=== PATIENT | male | born 1940 | race Caucasian/White ===

== ENCOUNTER 2019-05-20 13:48 | Inpatient (IN) | payer MEDICARE, BC ==
--- OUTSIDE RECORDS SUMMARY | 2019-05-20 14:02 | XMS REPORT | Summary of Care ---
:1940 Author Organization The Address [address] [place] [address] Care Team Providers Name Role Phone Solomon De La Cruz MD Primary Care Provider Jewel Wheeler MD Unavailable Reason for Referral MRI/CAT/PET Scan (Routine) Status Reason Specialty Diagnoses / Referred By Referred To Procedures Contact Contact Authorized Radiology Diagnoses Right flank pain Solomon De La Cruz MD [address] Procedures CT ABDOMEN PELVIS WITHOUT IV CONTRAST [address] [place] [address] Phone: Reason for Visit Reason Comments Follow Up pt presents for follow up from kidney infection [place] [facility] [place] Problem pt states having some right kidney pain, states going on for about 3/4 months. Seems to be when making any movements. Encounter Details Date Type Department Care Team Description 04/05/2019 Office Visit [facility] Solomon De La Cruz MD Right flank pain (Primary Dx); Practice [address] Stage 4 chronic kidney disease (HCC); [address] [place] [address] Prostate cancer; [place] [address] Anemia due to vitamin B12 deficiency, unspecified B12 deficiency type [phone] Allergies Active Allergy Reactions Severity Noted Date Comments Bactrim Ds Rash 02/26/2017 documented as of this encounter (statuses as of 04/05/2019) Medications Medication Sig Dispensed Refills Start Date End Date Status Cholecalciferol Take 1 Tab by 0 Active (VITAMIN D) 1000 UNITS mouth DAILY. Oral Tab docusate sodium (STOOL Take 100 mg by 0 Active SOFTENER) 100 MG Oral mouth TWICE DAILY. Cap Ascorbic Acid (VITAMIN Take 1 Cap by 0 Active C) 500 MG Oral Cap mouth DAILY. PROCEDURE (MEDICATION 1 Each by Apply 10 Each 0 01/16/2016 Active COMMUNICATION ORDER) externally route Continuous. leg bag to attach to a nephrostomy tube pravastatin take 1 tablet by 90 Tab 1 03/24/2017 Active (PRAVACHOL) 20 MG Oral mouth once daily Tab zolpidem (AMBIEN) 10 take 1 tablet by 30 Tab 1 01/02/2018 Active MG Oral Tab mouth at bedtime if needed for sleep amLodipine (NORVASC) 5 Take 1 Tab by 90 Tab 1 01/23/2018 Active MG Oral Tab mouth DAILY. bicalutamide (CASODEX) take 1 tablet by 90 Tab 0 01/07/2019 Active 50 MG Oral Tab mouth once daily clopidogrel (PLAVIX) take 1 tablet by 90 Tab 1 01/28/2019 Active 75 MG Oral Tab mouth once daily doxazosin (CARDURA) 1 Take 1 Tab by 90 Tab 1 03/12/2019 Active MG Oral Tab mouth EVERY BEDTIME. metoprolol (LOPRESSOR) Take 1 Tab by 180 Tab 1 03/12/2019 Active 50 MG Oral Tab mouth TWICE DAILY. documented as of this encounter (statuses as of 04/05/2019) Active Problems Problem Noted Date Anemia due to vitamin B12 deficiency 03/16/2019 Stage 4 chronic kidney disease 02/20/2018 Gout 04/07/2014 Overview: First-time presentation in May 2013 Prostate cancer 03/12/2010 Overview: 12/02/07 PSA 15, most recent treatment at [facility] in spring 2013 for cryotherapy Hyperlipidemia 03/12/2010 Overview: 10/12/09 Cholesterol 220, Triglycerides 99, HDL 62, LDL 138 Dr Hina Slaughter [phone] Erectile dysfunction 03/12/2010 Abdominal hernia 03/12/2010 Heart murmur 03/12/2010 CAD (coronary artery disease) 03/12/2010 Carotid bruit 03/12/2010 Overview: 10/21/2009 Dr Tj Knowles Radiologist, proximal internal carotid artories and carotid bulb regions were elevated showing a 26% stenosis on the left in the proximal internal carotid artery. Echocardiogram 10/21/09 EF 68% Osteopenia 03/12/2010 Essential hypertension, benign documented as of this encounter (statuses as of 04/05/2019) Resolved Problems Problem Noted Date Resolved Date Acute kidney failure, unspecified 03/29/2015 02/26/2017 NIMISHA (acute kidney injury) 03/28/2015 02/26/2017 documented as of this encounter (statuses as of 04/05/2019) Immunizations Name Administration Dates Next Due Influenza (IM) Preservative Free 05/23/2016, 05/08/2015, 05/18/2013, 05/06/2012, 05/23/2010 Influenza Vaccine High Dose 05/11/2018, 05/16/2017 Influenza Vaccine Whole 05/14/2011 PNEUMOCOCCAL POLYSACCHARIDE VACCINE 12/14/2014, 06/03/2005 Pneumococcal Conjugate(13 Valent) 06/03/2018 Vitamin B12 (1,000 mcg) 05/08/2015, 05/02/2015, 04/25/2015, 04/17/2015 ZOSTER (ZOSTAVAX) VACCINE 05/18/2013 documented as of this encounter Social History Tobacco Use Types Packs/Day Years Used Date Former Smoker Cigarettes 1 20 Quit: 08/18/2003 Smokeless Tobacco: Never Used Alcohol Use Drinks/Week oz/Week Comments No 0 Standard drinks or equivalent 0.0 Sex Assigned at Date Recorded Not on file Job Start Date Occupation Industry Not on file Not on file Not on file Travel History Travel Start Travel End No recent travel history available. documented as of this encounter Last Filed Vital Signs Vital Sign Reading Time Taken Comments Blood Pressure 132/66 04/05/2019 2:45 PM EDT Pulse 67 04/05/2019 2:45 PM EDT Temperature - - Respiratory Rate - - Oxygen Saturation 99% 04/05/2019 2:45 PM EDT Inhaled Oxygen Concentration - - Weight 81.2 kg (179 lb) 04/05/2019 2:45 PM EDT Height 172.7 cm (5' 8") 04/05/2019 2:45 PM EDT Body Mass Index 27.22 04/05/2019 2:45 PM EDT documented in this encounter Progress Notes Solomon De La Cruz MD - 04/05/2019 2:40 PM EDT PATIENT: Jenelle Thorne : 1940 DATE OF SERVICE: 04/05/2019 CHIEF COMPLAINT: Chief Complaint Patient presents with Follow Up pt presents for follow up from kidney infection from [facility] [place] Kidney Problem pt states having some right kidney pain, states going on for about 3/4 months. Seems to be when making any movements. Subjective HISTORY OF PRESENT ILLNESS: Jenelle Thorne is a 78-y.o. male. He still has back pain on the right side. 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 . More when he moves . Sitting ingood chair no problem. No radiation. Not pleuritic . Stent was changed and told right side loose but also lot of calcifications so was a difficult exchange that led to a uti. He was feverish Put on antibiotics and is better now. His hematuria is better Cr up to 2.5 rest of lytes stable Wbc 11 Hct stable at 35 Past Medical History: Diagnosis Date Actinic keratoses Dr. Nick Carotid stenosis CKD (chronic kidney disease) High cholesterol Hypertension MGUS (monoclonal gammopathy of unknown significance) Peripheral neuropathy Prostate cancer (HCC) bladder had to be removed. nephrostomy tubes out. No family history on file. Current Outpatient Medications Medication Sig amLodipine (NORVASC) 5 MG Oral Tab Take 1 Tab by mouth DAILY. Ascorbic Acid (VITAMIN C) 500 MG Oral Cap Take 1 Cap by mouth DAILY. bicalutamide (CASODEX) 50 MG Oral Tab take 1 tablet by mouth once daily Cholecalciferol (VITAMIN D) 1000 UNITS Oral Tab Take 1 Tab by mouth DAILY. clopidogrel (PLAVIX) 75 MG Oral Tab take 1 tablet by mouth once daily docusate sodium (STOOL SOFTENER) 100 MG Oral Cap Take 100 mg by mouth TWICE DAILY. doxazosin (CARDURA) 1 MG Oral Tab Take 1 Tab by mouth EVERY BEDTIME. metoprolol (LOPRESSOR) 50 MG Oral Tab Take 1 Tab by mouth TWICE DAILY. pravastatin (PRAVACHOL) 20 MG Oral Tab take 1 tablet by mouth once daily PROCEDURE (MEDICATION COMMUNICATION ORDER) 1 Each by Apply externally route Continuous. legbag to attach to a nephrostomy tube zolpidem (AMBIEN) 10 MG Oral Tab take 1 tablet by mouth at bedtime if needed for sleep No current facility-administered medications for this visit. Allergies Allergen Reactions Bactrim Ds Rash Social History Socioeconomic History Marital status: Spouse name: Not on file Number of children: Not on file Years of education: Not on file Highest education level: Not on file Occupational History Not on file Social Needs Financial resource strain: Not on file Food insecurity: Worry: Not on file Inability: Not on file Transportation needs: Medical: Not on file Non-medical: Not on file Tobacco Use Smoking status: Former Smoker Packs/day: 1.00 Years: 20.00 Pack years: 20.00 Types: Cigarettes Last attempt to quit: 08/18/2003 Years since quittin.6 Smokeless tobacco: Never Used Substance and Sexual Activity Alcohol use: No Alcohol/week: 0.0 standard drinks Drug use: No Sexual activity: Yes Lifestyle Physical activity: Days per week: Not on file Minutes per session: Not on file Stress: Not on file Relationships Social connections: Talks on phone: Not on file Gets together: Not on file Attends latter day service: Not on file Active member of club or organization: Not on file Attends meetings of clubs or organizations: Not on file Relationship status: Not on file Intimate partner violence: Fear of current or ex partner: Not on file Emotionally abused: Not on file Physically abused: Not on file Forced sexual activity: Not on file Other Topics Concern Back Care Not Asked Bike Helmet Not Asked Blood Transfusions Not Asked Caffeine Concern Not Asked Exercise Not Asked Hobby Hazards Not Asked International Travel Not Asked Service Not Asked Occupational Exposure Not Asked Seat Belt Not Asked Self-Exams Not Asked Sleep Concern Not Asked Special Diet Not Asked Stress Concern Not Asked Weight Concern Not Asked Social History Narrative Lives in [place], [place]. 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 Has female partner. REVIEW OF SYSTEMS: ROS Objective PHYSICAL EXAM: VITALS: BP 132/66 (BP Location: Right arm, Patient Position: Sitting) | Pulse 67 | Ht 5' 8" (1.727 m) | Wt 179 lb (81.2 kg) | SpO2 99% | BMI 27.22 kg/m Body mass index is 27.22 kg/m. Physical Exam Constitutional: No distress. Cardiovascular: Normal rate and regular rhythm. Pulmonary/Chest: Effort normal and breath sounds normal. No respiratory distress. Musculoskeletal: He exhibits no tenderness (not to palpate but at the CVA region ). Skin: No rash noted. Vitals reviewed. ASSESSMENT / IMPRESSION: ICD-9-CM ICD-10-CM 1. Right flank pain in a patient with prostate cancer and nephrostomy tubes . Could be musculoskeletal or could be due to the tubes . All I can offer him is a CT to make sure nothing else going on. ultrasound already been done . Labs reassuring no increase to alk phos or LFT 789.[address] ABDOMENPELVIS WITHOUT IV CONTRAST 2. Stage 4 chronic kidney disease (HCC) 585.4 N18.4 3. Prostate cancer 185 C61 4. Anemia due to vitamin B12 deficiency, unspecified B12 deficiency type He is getting B12 as ordered by his doctors in [place] 281.1 D51.9 I Plan His significant other is in Hospice Author: Solomon De La Cruz MD 04/05/2019 15:09 documented in this encounter Plan of Treatment Date Type Specialty Care Team Description 04/20/2019 Nurse/Clinical Support Internal Medicine Name Type Priority Associated Diagnoses Order Schedule CT ABDOMEN PELVIS Imaging Routine Right flank pain Expected: 04/05/2019, WITHOUT IV CONTRAST Expires: 04/04/2020 Health Maintenance Due Date Last Done Comments HIV SCREENING 1955 ZOSTER IMMUNIZATION SERIES 07/13/2013 05/18/2013 (2 of 3) COLONOSCOPY SCREENING 03/28/2017 03/28/2014, 05/07/2010, 05/07/2010, Additional history exists MEDICARE ANNUAL WELLNESS 02/26/2018 02/26/2017 VISIT INFLUENZA VACCINE (#1) 2019 05/11/2018, 05/16/2017, 05/23/2016, Additional history exists DEPRESSION SCREENING 02/02/2020 02/01/2019 FALL RISK ASSESSMENT 02/02/2020 02/01/2019, 02/01/2019 PNEUMOCOCCAL 65+YRS Completed 06/03/2018, 12/14/2014, 06/03/2005 HPV IMMUNIZATION SERIES Aged Out No longer eligible based on patient's age to complete this topic MENINGOCOCCAL VACCINE IMM Aged Out No longer eligible based on patient's age to complete this topic documented as of this encounter Goals Goal Patient Goal Associated Recent Patient-Stated? Author Type Problems Progress Blood Pressure Blood Pressure Essential 132/66 No Jono, < 140/90 hypertension, (04/05/2019 MD Solomon benign 2:45 PM EDT) Note: Hypertension Care Plan Based on the patient's clinical history and according to JNC 8 guidelines target blood pressure goal is less than 150/90. Based on the patient's last blood pressure of BP: 144/50 mmHg the patient is at at goal. As your provider, it is important that I advise you regarding: your current medications and help you with any challenges you may face taking your medications as directed (ex. instructions, cost, side effects, and interactions). Important lifestyle changes: exercise your clinical goals and how you can achieve success: exercise plan medication management: adjusted medications as appropriate patient education/self-management tools provided: Current self-management tools adequate To successfully manage my Hypertension I will: monitor my blood pressure daily, understanding that my goal is less than 150/ 90 per my healthcare provider's recommendation. I will schedule an appointment with my provider if consistent abnormal readings greater than 160/100. take medications every day as prescribed by my healthcare provider and if unable to take them I will discuss with my provider. monitor for symptoms of chest pain, chest tightness/pressure, irregular heartbeat, persistent dizziness, radiating arm pain, and neck or jaw pain. If any of these symptoms are noticed I will seek medical attention immediately by calling 911 exercise/walk 15 minutes 7 day(s) per week. If I experience chest pain, chest tightness, or shortness of breath, I will seek medical attention immediately. follow a diet rich in fruits, vegetables, and low-fat dairy products with reduced content of saturated & total fat. I will reduce my sodium intake daily. An example is the DASH diet. To obtain more information please refer to the DASH Eating Plan listed in Educational Resources. record my blood pressure results. Hong is safe and secure way for you to do this in your medical record online. try to obtain an ideal body weight. My recent weight was Weight: 144 lb ( 65.318 kg). My weight loss goal for my next office visit is 0. limit alcohol consumption. For men two drinks per day and women one drink per day. if currently smoking, will discuss how to quit smoking with my healthcare provider and work towards quitting. Educational Resources: National Heart, Lung, & Blood [place] http://nhlbi.nih.gov/hbp/index.html The DASH Diet Eating Plan http://www.nhlbi.nih.gov/health/health-topics/ topics/dash/ Academy of Nutrition & DIetetics http://eatright.org National Smoking Cessation Site http://smokefree.gov Blood Pressure < 140/90 Blood Pressure 132/66 (04/05/2019 2:45 No Solomon De La Cruz MD PM EDT) Note: This is an individualized treatment (blood pressure) goal for Jenelle Thorne: Displayed above (on the left) is your goal for blood pressure control. Your most recent blood pressure is also shown above, on the right. You should try to achieve blood pressures that are lower than your goal listed above (on the left). Take all prescribed medications as directed Self-management No Solomon De La Cruz MD Note: This is an individualized self-management goal for Jenelle Thorne: Please take all prescribed medications as directed. 1. Do not skip doses. If you cannot afford your medications, talk with your doctor. 2. Use a pill reminder system such as a pill box if needed. Your pharmacist can help you with this. 3. Contact your Pharmacy 5 days before your medication runs out. If you cannot take your medications for any reasons, talk with your doctor. 4. Please bring all of your medication bottles and inhalers (or a list of all your medications/inhalers) with you to every visit. Potential barriers to meeting all of your care plan goals will continue to be addressed on an ongoing basis. documented as of this encounter Results Not on filedocumented in this encounter Visit Diagnoses Diagnosis Right flank pain - Primary Abdominal pain, unspecified site Stage 4 chronic kidney disease (HCC) Prostate cancer Malignant neoplasm of prostate Anemia due to vitamin B12 deficiency, unspecified B12 deficiency type documented in this encounter Insurance Payer Benefit Plan / Subscriber ID Effective Dates Phone Address Type Group MEDICARE MEDICARE PART A & B xxxxxxxxxx 2005-Present Medicare [facility] xxxxxxxxx 2016-Present [place] (Work) documented as of this encounter
[2019-05-20] MEDS ORDERED: NS 0.9% 1000 ML** 1,000 ML IV.FLUID IV ONE (14:21)
[2019-05-20] MEDS ORDERED: Piperacillin/Tazobac ADVAN(*) 3.375 GM in NS 0.9% 100 ML* 100 ML IVPB ONE (14:21)
--- NOTE | 2019-05-20 14:41 | ED ---
Complex/Multi-Sys Presentation - HPI Summary HPI Summary: 78 year old M presenting to [facility] from radiology accompanied by son-in-law complains of chills and shakes, nausea/vomiting since 13:30 today while he was getting ready to go home after having his bilateral urostomy tubes changed. Patient denies cough, chest pain, shortness of breath, headache, dizziness, fever. The patient rates the pain 0/10 in severity per triage note. Symptoms aggravated by nothing. Symptoms alleviated by nothing. Patient has hx sepsis with which he usually has chills and shakes. Per nurse, patient has hx septic shock 3 years ago. Vital signs while in room: HR 88 bpm, BP 174/78, O2 sat 95% Home Medications Medication Instructions Recorded Confirmed Type Clopidogrel TAB* [Plavix TAB*] 75 mg PO QPM 03/11/16 05/20/19 History Doxazosin TAB* [Cardura TAB*] 1 mg PO BEDTIME 03/11/16 05/20/19 History Metoprolol Tartrate TAB* 50 mg PO BID 03/11/16 05/20/19 History [Lopressor TAB*] amLODIPine TAB* [Norvasc TAB*] 5 mg PO QAM 03/11/16 05/20/19 History Ascorbic Acid TAB* [Vitamin C 500 mg PO DAILY 02/20/17 05/20/19 History TAB*] Bicalutamide [Casodex] 50 mg PO QPM 02/20/17 05/20/19 History Cholecalciferol (Vitamin D3) 1,000 unit PO DAILY 02/20/18 05/20/19 History [Vitamin D3] Pravastatin Sodium 20 mg PO QPM 02/20/18 05/20/19 History Cyanocobalamin INJ * [Vitamin B12 1 ml IM .EVERY 28 DAYS 05/20/19 05/20/19 History INJ *] Docusate CAP* [Colace Cap*] 100 mg PO BID 05/20/19 05/20/19 History Zolpidem TAB* [Ambien TAB*] 10 mg PO BEDTIME PRN 05/20/19 05/20/19 History - History Of Current Complaint Chief Complaint: EDGeneral Time Seen by Provider: 05/20/19 14:18 Hx Obtained From: Patient, Other: - radiology nurse Onset/Duration: Sudden Onset, Lasting Hours, Still Present Timing: Constant Severity Currently: Moderate - no pain, +chills and vomiting Severity Initially: Moderate Location: Negative Aggravating Factor(s): Nothing Alleviating Factor(s): Nothing Associated Signs And Symptoms: Positive: Vomiting, Other - POS: chills NEG: cough, chest pain, shortness of breath, headache, dizziness, fever Related History: Similar Episode/Diagnosed As: - sepsis due to urinary tract infection - Allergies/Home Medications Allergies/Adverse Reactions: Allergies Allergy/AdvReac Type Severity Reaction Status Date / Time sulfamethoxazole Allergy Rash And Verified 05/20/19 07:31 [From Bactrim] Itching trimethoprim [From Bactrim] Allergy Rash And Verified 05/20/19 07:32 Itching Home Medications: Home Medications Cyanocobalamin INJ * [Vitamin B12 INJ *] 1 ml IM .EVERY 28 DAYS 05/20/19 [ History Confirmed 05/20/19] Docusate CAP* [Colace Cap*] 100 mg PO BID 05/20/19 [History Confirmed 05/20/19] Zolpidem TAB* [Ambien*] 10 mg PO BEDTIME PRN 05/20/19 [History Confirmed ] PMH/Surg Hx/FS Hx/Imm Hx Previously Healthy: No Endocrine/Hematology History: Reports: Hx Anemia - B12 deficiency Cardiovascular History: Reports: Hx Coronary Artery Disease, Hx Hypercholesterolemia, Hx Hypertension History: Reports: Hx Renal Disease - BILATERAL UROSTOMY CATHETERS Musculoskeletal History: Reports: Hx Gout Neurological History: Reports: Hx Peripheral Neuropathy - Cancer History Cancer Type, Location and Year: PROSTATE - Surgical History Surgery Procedure, Year, and Place: PROSTATE AND BLADDER REMOVED Infectious Disease History: No Infectious Disease History: Denies: Traveled Outside the [place] in Last 30 Days - Family History Known Family History: Positive: Other - prostate CA - Social History Alcohol Use: None Substance Use Type: Reports: None Hx Tobacco Use: Yes Smoking Status (MU): Former Smoker Review of Systems Positive: Chills, Other - shakes. Negative: Fever Negative: Chest Pain Negative: Shortness Of Breath, Cough Positive: Vomiting, Nausea Positive: other - bilateral urostomy tubes changed just prior to ED presentation Positive: Myalgia Neurological: Negative - dizziness Negative: Headache Psychological: Normal All Other Systems Reviewed And Are Negative: Yes Physical Exam - Summary Physical Exam Summary: Appearance: Ill-appearing, no acute pain distress, well-nourished, rigors, dry heaving Skin: Warm, color reflects adequate perfusion, dry Head: Normal Head/Face inspection, atraumatic Eyes: Conjunctiva clear ENT: Normal inspection Neck: Supple, no nodes, no JVD Respiratory: Lungs clear, normal breath sounds, no respiratory distress Cardio: RRR, No murmur, pulses normal, brisk capillary refill Abdomen: Soft, nontender, nondistended, no ecchymosis Bowel sounds: Present : cystostomy bag with clear urine Musculoskeletal: Strength Intact/ROM intact, no calf tenderness, no edema. Psychological: Normal Neuro: Alert, muscle tone normal, no focal deficit Triage Information Reviewed: Yes Vital Signs On Initial Exam: Initial Vitals Temp Pulse Resp BP Pulse Ox 98 F 93 20 170/70 99 05/20/19 13:53 05/20/19 13:53 05/20/19 13:53 05/20/19 13:53 05/20/19 13:53 Vital Signs Reviewed: Yes Procedures - Sedation Patient Received Moderate/Deep Sedation with Procedure: No Diagnostics - Vital Signs Vital Signs Temp Pulse Resp BP Pulse Ox 05/20/19 14:33 97 05/20/19 13:53 98 F 93 20 170/70 99 - Laboratory Result Diagrams: 05/23/19 05:52 05/23/19 05:52 Lab Statement: Any lab studies that have been ordered have been reviewed, and results considered in the medical decision making process. - Radiology CXR Radiology Interpretation Completed By: Radiologist Summary of Radiographic Findings: No evidence for pneumonia or other acute cardiopulmonary process. ED physician has reviewed this report. - EKG 1459 Cardiac Rate: NL - 90 BPM EKG Rhythm: Sinus Rhythm ST Segment: Non-Specific Ectopy: None EKG Comparison: Other - No prior to compare Summary of EKG Findings: An EKG at 14:59 reveals sinus rhythm, nml AV/IV CT, nml QTc, and nml axis. Minimal ST depressions diffusely. No acute changes. No prior EKG to compare. ED MD has reviewed and interpreted this EKG. Re-Evaluation - Re-Evaluation First Eval Re-Evaluation Time: 15:35 Change: Improved Comment: patient is more comfortable. still complains of being cold. no rigors , no dry heaving Second Eval Re-Evaluation Time: 22:00 Change: Worse Comment: RN reports temp 100.7. Pt without rigors or vomiting or abdominal pain. Hospitalist advised. Complex Multi-Symp Course/Dx Course Of Treatment: 78 year old Male presenting to [facility] from radiology complains of chills and shakes, nausea/vomiting since 13:30 today while he was getting ready to go home after having his bilateral urostomy tubes changed in the radiology department. Upon exam, the patient has rigors and is dry heaving. Patient has a cystostomy bag with clear urine. His abdomen is soft, nontender, without ecchymoses. Patient medications reviewed this visit. Nurses notes reviewed. Allergies noted. High blood pressure noted. In the ED course , the patient was given Zofran 8 mg IV, Zosyn 3.375gm IV x1, and normal saline fluids 30cc/kg per sepsis protocol. Pt is difficult venous access and pt's IV placed in radiology suite was via ultrasound. Patient's clinical condition and hx sepsis due to urinary infection, warrants IV antibiotics prior to all blood cultures. It would endanger patient's outcome if antibiotics were not given emergently in his clinical course. An EKG at 14:59 reveals sinus rhythm, nml AV /IV CT, nml QTc, and nml axis. Minimal ST depressions diffusely. No acute changes. No prior EKG to compare. CXR shows, per radiologist: No evidence for pneumonia or other acute cardiopulmonary process. Urinalysis results with no significant abnormalities except for specific gravity 1.009, protein 2+, blood 3 +, leukocyte esterase 3+, WBC 3+, RBC 3+, present squamous epithelial cells, and bacteria 1+. At 15:09, we are awaiting the US team to place patient's venous access. Patient's previous venous access with which patient arrived was placed by US team. Bloodwork results with no significant abnormalities except for WBC 12.5, RBC 2.96, Hgb 9.6, Hct 29, MCV 97, MCH 32, absolute neuts 12.2, absolute lymphs 0.1, INR 1.18, APTT 25.7, INR 1.18, APTT 25.7, carbon dioxide 21 , BUN 29, creatinine 1.00, calcium 7.5, CRP 9.80, BNP 121, total protein 5.6. Spoke with Dr. Richter, hospitalist, who is aware of patient at 15:38. The patient will be admitted to the hospitalist. With tachycardia, fever, elevated wbc count and suspected source urine, pt meets sepsis criteria. - Diagnoses Differential Diagnoses/HQI/PQRI: Metabolic Abnormality, Sepsis, Urinary Tract Infection Provider Diagnoses: Rigors, Hypoxia, Anemia, Sepsis, CKD (chronic kidney disease) stage 3, GFR 30- 59 ml/min, Hypocalcemia, Complication of urostomy - Physician Notifications Discussed Care Of Patient With: Emma Richter Time Discussed With Above Provider: 15:38 Instructed by Provider To: Admit As Inpatient - Dr. Richter, hospitalist, is aware of patient - Critical Care Time Critical Care Time: 30-74 min - 30 mins Discharge ED - Sign-Out/Discharge Documenting (check all that apply): Patient Departure - Admit - Discharge Plan Condition: Stable Disposition: ADMITTED TO [facility] - Billing Disposition and Condition Condition: STABLE Disposition: Admitted to [facility] - Attestation Statements Document Initiated by Irvinge: Yes Documenting Scribe: Shari Espino Provider For Whom Jad is Documenting (Include Credential): Kassandra Michaud MD Scribe Attestation: Shair Carr, scribed for Kassandra Michaud MD on 06/13/19 at 2222. Scribe Documentation Reviewed: Yes Provider Attestation: The documentation as recorded by the [email or web address] rebolledo accurately reflects the service I personally performed and the decisions made by me, Kassandra Michaud MD Status of Scribe Document: Viewed
[2019-05-20] MEDS ORDERED: Ondansetron INJ* 2 MG/ML VIAL IV ONE (15:05)
[2019-05-20 15:36] LABS: Urine Appearance Cloudy; Urine Bacteria 1+ (Absent); Urine Bilirubin Negative (Negative); Urine Blood 3+ (Negative); Urine Color Yellow; Urine Glucose Negative (Negative); Urine Ketones Negative (Negative); Urine Nitrite Negative (Negative); Urine Protein 2+(100 mg/dL) (Negative); Urine Red Blood Cell 3+(>10/hpf) (Absent); Urine Specific Gravity 1.009 (1.010-1.030); Urine Squamous Epithelial Cell Present (Absent); Urine Urobilinogen Negative (Negative); Urine White Blood Cell 3+(>20/hpf) (Absent)
[2019-05-20 16:36] LABS: ABS Basophils 0.1 10^3/ul (0-0.2); ABS Lymphocytes 0.1 10^3/ul (1.0-4.8); ABS Monocytes 0.1 10^3/ul (0-0.8); ABS Neutrophils 12.2 10^3/ul (1.5-7.7); Eosinophil % 0.1 %; Hematocrit 29 % (42-52); Hemoglobin 9.6 g/dL (14.0-18.0); Lymphocyte % 0.7 %; Mean Corpuscular HGB Conc 34 g/dL (31-36); Mean Corpuscular Hemoglobin 32 pg (27-31); Mean Corpuscular Volume 97 fL (80-94); Mean Platelet Volume 8.8 fL (7.4-10.4); Platelet Count 168 10^3/uL (150-450); Red Blood Count 2.96 10^6 /uL (4.18-5.48); Red Cell Distribution Width 13 % (10-15); White Blood Count 12.5 10^3/uL (3.5-10.8)
[2019-05-20 16:40] LABS: Troponin I 0.03 ng/mL (<0.04)
[2019-05-20 16:41] LABS: Activated Partial Thrombo Time 25.7 seconds (26.0-38.0); INR 1.18 (0.82-1.09)
[2019-05-20 16:50] LABS: Albumin 3.4 g/dL (3.2-5.2); Albumin/Globulin Ratio 1.5 (1-3); BUN/Creatinine Ratio 14.6 (8-20); C Reactive Protein 9.8 mg/L (<8.01); Calcium 7.5 mg/dL (8.6-10.3); EGFR African American 39.5 (>60); EGFR Non-African American 32.7 (>60); Globulin 2.2 g/dL (2-4); Total Bilirubin 0.6 mg/dL (0.2-1.0); Total Protein 5.6 g/dL (6.4-8.9)
[2019-05-20 17:01] LABS: Potassium 4.4 mmol/L (3.5-5.0)
[2019-05-20 18:27] LABS: Erythrocyte Sed Rate 33 mm/Hr (0-19)
[2019-05-20 19:39] LABS: Influenza A Molecular NEGATIVE (Negative); Influenza B Molecular NEGATIVE (Negative)
[2019-05-21] MEDS ORDERED: Ondansetron INJ* 2 MG/ML VIAL IV PRN (01:44)
[2019-05-21] MEDS ORDERED: NS 0.9% 1000 ML** 1,000 ML IV SCH (01:45)
[2019-05-21] MEDS ORDERED: Vancomycin(*) 1,000 MG in NS 0.9% 250 ML* 250 ML IVPB ONE (01:49)
[2019-05-21] MEDS ORDERED: Zolpidem TAB* 10 MG PO PRN (01:50)
[2019-05-21] MEDS ORDERED: Zosyn per Pharmacy* NOTE FOLLOW UP SCH (02:00)
[2019-05-21] MEDS ORDERED: Vancomycin per Pharmacy* NOTE FOLLOW UP SCH (02:00)
[2019-05-21] MEDS ORDERED: Vancomycin(*) 1,250 MG IV x ONCE IVPB ONE ×2 (02:30)
[2019-05-21] MEDS ORDERED: ZOSYN 3.375 GM x ONE DOSE over 30 miuntes IVPB ×2 (02:30)
--- NOTE | 2019-05-21 05:41 | HP ---
CC: Dr. Solomon De La Cruz; Dr. Jewel Wheeler * ADMISSION HISTORY AND PHYSICAL: DATE OF ADMISSION: 05/21/19 PRIMARY CARE PHYSICIAN: Dr. Solomon De La Cruz. UROLOGIST: Dr. Jewel Wheeler. CHIEF COMPLAINT: Chills. 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 He has had percutaneous nephrostomy tubes in the past and later started having bilateral stents, which were periodically changed. His most recent stent change was on 05/20/19 in the morning. Postprocedure that morning, the patient started feeling chills and shakes and was getting dressed to leave, he noticed some blood in the urine, but which was noted to be normal for this kind of procedure, but he later started developing vomiting, which was clear. After observing him for a few hours, he was sent to the ER for further evaluation. The patient otherwise offers no other complaints at this point and no pain. No burning sensation with urination or change in urinary color, other than the minimal amount of blood he initially noted postprocedure. His cystostomy bag was filled up with clear yellow urine, but he did develop fever upon arrival to the ER and he was noted to have elevated white count suggestive of sepsis, likely secondary to UTI. He is being admitted for treatment of the sepsis. PAST MEDICAL HISTORY: He has a history of chronic kidney disease stage 3; anemia; recurrent UTIs; hypertension; hyperlipidemia; gout; peripheral neuropathy; vitamin B12 deficiency; as mentioned prostate cancer, status post proton beam radiation therapy, followed by cryotherapy failure, later requiring cystoprostatectomy with ileal conduit for urinary diversion, which later required him to have bilateral ureteral stent placement and percutaneous nephrostomy tubes placement. The nephrostomy tubes were later removed in 2017 once the ureteral stents were functioning normally, now requiring ureteral stent change. He also has a history of coronary artery disease, stated that he had a cardiac cath done, which showed some partial stenosis roughly up to 65% but did not require any stents and is only started on Plavix. PAST SURGICAL HISTORY: As mentioned, he has had multiple bladder and prostate surgeries and cystoscopies and stent placements and nephrostomy. He has also had an arthroscopy of the right knee and cardiac catheterization as mentioned. HOME MEDICATIONS: The patient is currently on: 1. Ambien p.r.n. for insomnia. 2. Cyanocobalamin every 28 days IM. 3. Pravastatin 20 mg every evening. 4. Metoprolol 15 mg p.o. b.i.d. 5. Doxazosin 1 mg p.o. at bedtime. 6. Colace 100 mg p.o. b.i.d. 7. Clopidogrel 75 mg every evening. 8. Vitamin D3 1000 units oral daily. 9. Casodex 50 mg every evening. 10. Amlodipine 5 mg every morning. 11. Vitamin C 500 mg oral daily. ALLERGIES: As documented, the patient is allergic to BACTRIM. FAMILY HISTORY: Noncontributory. SOCIAL HISTORY: The patient had a history a [id number] history of smoking, quit over 20 years ago. Denies any alcohol use or any other drug use. Currently, he is living alone in [place] but does have a partner who is sick in [place]. He is full code and stated that he had a healthcare proxy before which he states that is his partner in [place], Lilyimani Jefferson, would be the primary healthcare proxy and Allyson Brannon, his daughter to be the secondary. However, for this admission given that the primary healthcare proxy is sick, he wants all calls to be diverted to Allyson Brannon. REVIEW OF SYSTEMS: A 14-point review of systems did not reveal any information other than the ones stated in the HPI. PHYSICAL EXAMINATION GENERAL: The patient is awake, alert, oriented x3, did not appear to be in any acute respiratory distress. VITAL SIGNS: In ER, BP was noted to be 129/47, heart rate 74, respiration rate 27, saturating 97% on room air, T-max in the ER was documented at 100.7. HEAD AND NECK: Atraumatic, normocephalic. Bilateral pupils were reactive. Oral mucosa was dry. Neck supple. No jugular venous distention. LUNGS: Clear to auscultation bilaterally. No wheezing, rhonchi, or rales. HEART: S1, S2. Regular rate and rhythm. ABDOMEN: Soft, nontender, nondistended. There was a cystostomy in place with clear yellow urine and no abdominal wall tenderness. EXTREMITIES: No cyanosis, clubbing, or edema. DIAGNOSTIC STUDIES/LAB DATA: CBC shows minimally elevated white count of 12.5 , mild anemia with hemoglobin of 9.6, hematocrit of 28, platelet count was normal at 168. INR was noted to be minimally elevated at 1.18, APTT was noted to be 25.7. Comprehensive metabolic panel shows creatinine stable at baseline at 1.99. Lactic acid normal. Brain natriuretic peptide was 121. LFTs were within normal limits. Urinalysis with 3+ leuk esterase positive and 3+ blood positive and a few bacteria. Influenza A and B were both noted to be negative. Portable chest x-ray was read as no evidence of pneumonia or other acute cardiopulmonary disease. EKG showed sinus rhythm at 90 beats per minute without any ST elevation. Previous cultures show growth of Klebsiella oxytoca, group B strep, Providencia rettgeri, and Proteus vulgaris. Reviewing the sensitivities of these organisms suggest all 4 species were sensitive to piperacillin and tazobactam. IMPRESSION: This is a 78-year-old male with unfortunate history of prostate cancer, which was complicated requiring cystostomy and serial bilateral ureteral stent change, comes in with ureteral stent change yesterday and developed fever and sepsis secondary to the procedure and likely urinary tract infection. ASSESSMENT: 1. Sepsis secondary to urinary tract infection, related to the stent change. For now, we will start the patient on broad-spectrum antibiotics with Zosyn, which covers the previously growing bacteria from February of 2019. We will also add vancomycin to cover for any methicillin-resistant Staphylococcus aureus that he may have acquired through instrumentalization. We will follow up cultures and titrate antibiotics accordingly. 2. History of prostate cancer. Restart his home dose of Casodex. 3. History of coronary artery disease, but no stents. Here, we will continue his Plavix. 4. History of hypertension. Restart home medications with BP parameters. 5. History of dyslipidemia. Restart home medications. 6. DVT prophylaxis with subcutaneous heparin. 7. Code status. Full code with the daughter Allyson being currently the primary healthcare proxy for this admission as mentioned. [id number]/[facility] #: [id number] [facility]
[2019-05-21 05:44] LABS: Hematocrit 29 % (42-52); Hemoglobin 9.6 g/dL (14.0-18.0); Mean Corpuscular HGB Conc 33 g/dL (31-36); Mean Corpuscular Hemoglobin 32 pg (27-31); Mean Corpuscular Volume 97 fL (80-94); Mean Platelet Volume 9.3 fL (7.4-10.4); Platelet Count 154 10^3/uL (150-450); Red Blood Count 2.99 10^6 /uL (4.18-5.48); Red Cell Distribution Width 14 % (10-15); White Blood Count 23.3 10^3/uL (3.5-10.8)
[2019-05-21 05:47] LABS: ABS Basophils 0.1 10^3/ul (0-0.2); ABS Lymphocytes 0.2 10^3/ul (1.0-4.8); ABS Monocytes 0.7 10^3/ul (0-0.8); ABS Neutrophils 22.4 10^3/ul (1.5-7.7); Lymphocyte % 0.9 %
[2019-05-21 05:58] LABS: BUN/Creatinine Ratio 11.9 (8-20); Calcium 8.1 mg/dL (8.6-10.3); EGFR African American 31.4 (>60); EGFR Non-African American 25.9 (>60); Potassium 4.3 mmol/L (3.5-5.0)
[2019-05-21] MEDS: Heparin VIAL(*) 5000 UNITS/ML VIAL (FIVE THOUSAND) SUBCUT SCH ×3 (05:59→22:15)
[2019-05-21] MEDS ORDERED: ZOSYN 3.375 GM Q8H per EXTENDED INFUSION IVPB SCH ×2 (06:30)
[2019-05-21] MEDS: Cholecalciferol TAB* 1000 UNITS PO SCH (08:04)
[2019-05-21] MEDS: Metoprolol Tartrate TAB* 50 mg PO SCH ×2 (08:04→20:34)
[2019-05-21] MEDS: Ascorbic Acid TAB* 500 MG PO SCH (08:05)
[2019-05-21] MEDS: amLODIPine TAB* 5 MG PO SCH (08:05)
[2019-05-21] MEDS: Docusate CAP* 100 MG PO SCH ×2 (08:13→20:32)
[2019-05-21] MEDS ORDERED: Influenza VAC *QUAD* 2019-20* 0.5 ML SYRINGE IM ONE (09:00)
[2019-05-21] MEDS: cefTRIAXone(*) 1 GM in NS 0.9% 50 ML* 50 ML IVPB SCH (10:20)
[2019-05-21] MEDS: Vancomycin(*) 500 MG in NS 0.9% 250 ML* 250 ML IVPB SCH (15:26)
--- NOTE | 2019-05-21 15:32 | PN ---
Subjective Date of Service: 05/21/19 Interval History: Patient is feeling poorly. Patient notices not much improvement from yesterday with antibiotics. Patient is making adequate urine. Patient denies N/V, abdominal pain, dizziness, or other pain. Family History: Unchanged from Admission Social History: Unchanged from Admission Past Medical History: Unchanged from Admission Objective Active Medications: Acetaminophen (Tylenol Tab*) 650 mg PO Q4H PRN PRN Reason: MILD PAIN or TEMP > 100.4 Amlodipine Besylate (Norvasc Tab*) 5 mg PO QAM [facility] Last Admin: 05/21/19 08:05 Dose: 5 mg Ascorbic Acid (Vitamin C Tab*) 500 mg PO DAILY [facility] Last Admin: 05/21/19 08:05 Dose: 500 mg Atorvastatin Calcium (Lipitor*) 5 mg PO QPM [facility]; Protocol Bicalutamide (Casodex (Nf)) 50 mg PO QPM [facility]; Protocol Cholecalciferol (Vitamin D Tab*) 1,000 units PO DAILY [facility] Last Admin: 05/21/19 08:04 Dose: 1,000 units Clopidogrel Bisulfate (Plavix Tab*) 75 mg PO QPM [facility] Docusate Sodium (Colace Cap*) 100 mg PO BID [facility] Last Admin: 05/21/19 08:13 Dose: 100 mg Doxazosin Mesylate (Cardura Tab*) 1 mg PO BEDTIME [facility] Heparin Sodium (Porcine) (Heparin Vial(*)) 5,000 units SUBCUT Q8HR [facility] Last Admin: 05/21/19 12:56 Dose: 5,000 units Sodium Chloride (Ns 0.9% 1000 Ml) 1,000 mls @ 100 mls/hr IV PER RATE [facility] Vancomycin HCl 500 mg/ Sodium (Chloride) 250 mls @ 166.667 mls/hr IVPB Q12H [facility] Last Admin: 05/21/19 15:26 Dose: 166.667 mls/hr Ceftriaxone Sodium 1 gm/ (Sodium Chloride) 50 mls @ 100 mls/hr IVPB Q24H [facility] Last Admin: 05/21/19 10:20 Dose: 100 mls/hr Influenza Virus Vaccine (Fluarix Quad [id number] Syr) 0.5 ml IM .ONCE ONE Stop: 05/22/19 09:01 Metoprolol Tartrate (Lopressor Tab*) 50 mg PO BID [facility] Last Admin: 05/21/19 08:04 Dose: 50 mg Ondansetron HCl (Zofran Inj*) 4 mg IV Q4H PRN PRN Reason: NAUSEA/VOMITING Pharmacy Consult (Vancomycin Per Pharmacy*) 1 note FOLLOW UP .VANC PER PHARMACY [facility]; Protocol Pharmacy Profile Note (Vancomycin Trough Check) 1 note FOLLOW UP 1500 ONE Stop: 05/22/19 15:01 Zolpidem Tartrate (Ambien Tab*) 10 mg PO BEDTIME PRN PRN Reason: SLEEP Vital Signs - 8 hr 05/21/19 05/21/19 05/21/19 07:31 07:36 07:43 Temperature 99.2 F Pulse Rate 83 Respiratory 24 24 28 Rate Blood Pressure 135/42 (mmHg) O2 Sat by Pulse 95 Oximetry 05/21/19 05/21/19 05/21/19 08:00 11:52 15:08 Temperature 99.7 F 99 F Pulse Rate 69 70 Respiratory 20 20 Rate Blood Pressure 130/42 119/43 (mmHg) O2 Sat by Pulse 95 97 97 Oximetry Oxygen Devices in Use Now: None Appearance: Patient is a 78yo male with a fine sheen of sweat, who is sitting in the bed in [facility]. Eyes: No Scleral Icterus, PERRLA Ears/Nose/Mouth/Throat: NL Teeth, Lips, Gums, Clear Oropharnyx, Mucous Membranes Moist Neck: NL Appearance and Movements; NL JVP, Trachea Midline Respiratory: Symmetrical Chest Expansion and Respiratory Effort, Clear to Auscultation Cardiovascular: NL Sounds; No Murmurs; No JVD, RRR, No Edema Abdominal: NL Sounds; No Tenderness; No Distention, No Hepatosplenomegaly, - - Urostomy in place draining clear yellow urine. Viable tissue on stoma. Lymphatic: No Cervical Adenopathy Extremities: No Edema, No Clubbing, Cyanosis Skin: No Rash or Ulcers, No Nodules or Sclerosis Neurological: Alert and Oriented x 3, NL Sensation, NL Muscle Strength and Tone , - - CN II-XII intact. Result Diagrams: 05/21/19 04:59 05/21/19 04:59 Microbiology and Other Data: Microbiology 05/20/19 14:23 Urine Culture - Preliminary Urine Strep Group B Enterococcus Faecalis 05/20/19 14:44 Aerobic Blood Culture - Preliminary Blood Venous No Growth Day 1 Anaerobic Blood Culture - Preliminary Strep Agalactiae - (Group B) 05/20/19 16:01 Aerobic Blood Culture - Preliminary Blood Venous Anaerobic Blood Culture - Preliminary Assess/Plan/Problems-Billing Assessment: Patient is a 78yo male with a PMH for urostomy due to prostate cancer, needing multiple ureteral stents, here with sepsis, UTI and bacteremia. Patient is on antibiotics. - Patient Problems (1) UTI (urinary tract infection) Current Visit: Yes Status: Acute Comment: - Complicated Urinary Tract with urostomy and stents, replacement yesterday - Will discuss possible need to change stents pending full sensitivities - Currently growing Enterococcus and GBS. (2) Sepsis Current Visit: Yes Status: Acute Comment: - With leukocytosis, Tachycardia, Fever - Urinary source with bacteremia. - Improving with fluids and antibiotics. (3) Bacteremia Current Visit: Yes Status: Acute Code(s): R78.81 - BACTEREMIA SNOMED Code( s): 5836903 Comment: - Due to GBS - Continue Ceftriaxone and Vancomycin - Appreciate ID input (4) Complication of urostomy Current Visit: Yes Status: Acute Code(s): N99.528 - OTHER COMP OF INCONTINENT EXTERNAL STOMA OF URINARY TRACT SNOMED Code(s): 02774098 Comment: - Possibly from stent replacement yesterday, though patient was reported to have been feeling poorly before procedure (5) CKD (chronic kidney disease) Current Visit: Yes Status: Acute Code(s): N18.9 - CHRONIC KIDNEY DISEASE, UNSPECIFIED SNOMED Code(s): 537176694 Comment: - With acute worsening with Vanco/Zosyn - Transition to Vancomycin/Ceftriaxone' - Monitor (6) HTN (hypertension) Current Visit: Yes Status: Acute Code(s): I10 - ESSENTIAL (PRIMARY) HYPERTENSION SNOMED Code(s): 61701642 Comment: - Normotensive - Continue Amlodipine (7) HLD (hyperlipidemia) Current Visit: Yes Status: Acute Code(s): E78.5 - HYPERLIPIDEMIA, UNSPECIFIED SNOMED Code(s): 23717452 Comment: - Continue Atorvastatin (8) CAD (coronary artery disease) Current Visit: Yes Status: Acute Code(s): I25.10 - ATHSCL HEART DISEASE OF [place] CORONARY ARTERY W/O ANG PCTRS SNOMED Code(s): 01015771 Comment: - Continue Plavix and lipitor - No signs of ACS (9) DVT prophylaxis Current Visit: Yes Status: Acute Code(s): Z29.9 - ENCOUNTER FOR PROPHYLACTIC MEASURES, UNSPECIFIED SNOMED Code(s): 922829349 Comment: - Heparin SubQ (10) Full code status Current Visit: Yes Status: Acute Code(s): Z78.9 - OTHER SPECIFIED HEALTH STATUS SNOMED Code(s): 661474676 Status and Disposition: Inpatient for GBS bacteremia
--- NOTE | 2019-05-21 16:40 | CONS ---
CONSULTATION REPORT: DATE OF CONSULT: 05/21/19 PRIMARY CARE PROVIDER: Dr. Solomon De La Cruz. CONSULTING SERVICE: Infectious Disease. PROVIDER: Rianna Schultz NP ATTENDING PROVIDER: Dr. Perez Love * (dictated by Rianna Schultz NP). REASON FOR CONSULT: Gram-positive cocci resembling strep in the blood. IMPRESSION: 1. Urinary tract infection in the setting of ureteral stents, status post routine stent exchange. The patient also has an ileal conduit. Initial urinalysis with 3+ blood,3 + leukocyte esterase, 3+ wbc's, 3+ rbc's, squamous epithelial cells present, bacteria 1+, no nitrites. He had blood cultures drawn prior to his arrival to the emergency room showing 3 out of 4 bottles with gram-positive cocci resembling strep. He had a low-grade fever in the emergency room. Temperature max 100.7. He has been afebrile since admission. He was noted to have leukocytosis with last white blood cell count 23.3, elevated ESR and CRP on admission. Previously in February of this year, he has had urine culture with Klebsiella oxytoca, group B Strep, Providencia rettgeri, Proteus vulgaris. Prior to that in 2015, he was noted to have Citrobacter. He has no prosthetic materials including joint replacements or pacemaker other than his ureteral stents. 2. History of prostate cancer, status post cystoprostatectomy with ileal conduit and ureteral stents. 3. Chronic kidney disease stage 3. PLAN/RECOMMENDATION: Agree with continuing vancomycin and ceftriaxone at this time. Should continue on IV antibiotics through the weekend. Once culture results are back, can discontinue vancomycin if the culture is in fact growing strep and not enterococcus. HISTORY OF PRESENT ILLNESS: Mr. Thorne is a 78-year-old male with past medical history significant for prostate cancer, status post radiation and a cystoprostatectomy, chronic kidney disease stage 3, anemia, recurrent urinary tract infections with ureteral stents, hypertension, hyperlipidemia, gout, peripheral neuropathy, vitamin B12 deficiency, and coronary artery disease, who states that he has been in his usual state of health. He last had his ureteral stents exchanged on 03/09/19, and he reports getting sick after that procedure as well. He also reports "tweaking his back a few days ago" and reports that he believes he has a compression fracture in one of his vertebra. He reports the back pain was getting better. He presented to the hospital yesterday to undergo a routine ureteral stent exchange. Postprocedure, he states that he was feeling well, approximately one hour after the procedure he had gotten dressed and was in the wheelchair ready to be discharged when he developed significant chills. He then developed nausea and vomiting. He had also noted some blood in his urine, but that typically occurs after his procedure. He was observed in the recovery area for a little while and had a chest x- ray showing no evidence for pneumonia or acute pulmonary process. He was then referred to the emergency room for further evaluation. While in the emergency room, he had labs showing leukocytosis with a white blood cell count of 12.5, elevated ESR is 33, creatinine at his baseline. CRP 9.80. He was afebrile on presentation, but did have low-grade fever of 100.7 while in the ER. He had blood cultures drawn as an outpatient prior to going to the emergency room. While in the ER, he had a urinalysis showing 3+ blood, 3 + leukocyte esterase, 3+ wbc's, 3+ rbc's, squamous epithelial cells present, bacteria 1+. No nitrites. Due to the concern of sepsis, the patient was referred to the hospitalist service for admission for urinary tract infection. While in the hospital, the patient has remained afebrile. His leukocytosis has increased up to 23.3 this morning. His blood cultures were drawn postprocedure yesterday are showing 3 out of 4 bottles with gram-positive cocci resembling strep. He tested negative for influenza A and B. Mr. Thorne states that he is feeling better today, and the hematuria has resolved. He denies any fevers, chills, vomiting, or rash. Continues to have some mild nausea and poor appetite. He reports one loose stool today, but no other diarrhea. He denies any abdominal pain. He denies any back pain other than the above mentioned which he states it is improving. He denies any recent travel. As he does not have typical urological anatomy as he has an ileal conduit. He does not get typical symptoms of urgency, frequency or dysuria. While in the hospital, he was placed on vanco and Zosyn and then switched to vanco and ceftriaxone this morning. PAST MEDICAL HISTORY: 1. Prostate cancer, status post radiation and surgery. 2. Chronic kidney disease stage 3. 3. Anemia. 4. Recurrent urinary tract infections. 5. Hypertension. 6. Hyperlipemia. 7. Gout. 8. Peripheral neuropathy. 9. Vitamin B12 deficiency. 10. Coronary artery disease. PAST SURGICAL HISTORY: 1. Status post cystoprostatectomy with ileal conduit. 2. Multiple ureteral stents. 3. History of nephrostomy tubes. 4. Status post cardiac catheterization. 5. Status post right knee arthroscopy. MEDICATIONS: Home medications include: 1. Ambien 10 mg by mouth daily at bedtime as needed for sleep. 2. Vitamin B12 1000 mcg IM monthly. 3. Pravastatin 20 mg by mouth daily. 4. Metoprolol tartrate 50 mg by mouth twice daily. 5. Cardura 1 mg by mouth daily at bedtime. 6. Colace 100 mg by mouth twice daily. 7. Plavix 75 mg by mouth daily. 8. Vitamin D3 1000 mg by mouth daily. 9. Casodex 50 mg by mouth every evening. 10. Amlodipine 5 mg by mouth daily. 11. Vitamin C 5000 mg by mouth daily. Hospital medications: 1. Acetaminophen 650 mg by mouth every 4 hours as needed for fever and pain. 2. Amlodipine 5 mg by mouth daily. 3. Vitamin C 500 mg by mouth daily. 4. Atorvastatin 5 mg by mouth every evening. 5. Casodex 50 mg by mouth every evening. 6. Ceftriaxone 1 g IV daily. 7. Vitamin D 1000 units by mouth daily. 8. Plavix 75 mg by mouth every evening. 9. Colace 100 mg by mouth twice daily. 10. Cardura 1 mg by mouth daily at bedtime. 11. Heparin sodium 5000 units subcutaneous every 8 hours. 12. Influenza vaccine 0.5 mL IM once. 13. Metoprolol tartrate 50 mg by mouth twice daily. 14. Zofran 4 mg IV every 4 hours as needed for nausea. 15. Sodium chloride 100 mL intravenously an hour. 16. Vancomycin 500 mg IV every 12 hours. 17. Ambien 10 mg by mouth daily at bedtime as needed for sleep. ALLERGIES: BACTRIM causes rash and itching. FAMILY HISTORY: Denies family history of recurrent or resistant infections, coronary artery disease, diabetes. His father passed from an unknown cause. He thinks this may have been cancer. SOCIAL HISTORY: He denies alcohol or recreational drug use. He is a former smoker, quitting 20 years ago. He had a [id number] smoking history. REVIEW OF SYSTEMS: I performed a 10-point review of systems. All the pertinent positives and negatives are mentioned in the history of present illness. The remaining review of systems are negative. PHYSICAL EXAM: Vital Signs: Temperature 99.7, heart rate 69, respiratory rate 20, O2 sat 97% on room air, blood pressure 130/42. General Appearance: He is alert, sitting up in her chair in no acute distress. Head: Normocephalic, atraumatic. EENT: Extraocular movements are intact. No subconjunctival hemorrhage. Moist mucous membranes. Neck: Supple. No lymphadenopathy. Full range of motion. Neurological: Alert and oriented x4. Cranial nerves II through XII are grossly intact. He moves all extremities. Cardiovascular: Regular rate and rhythm. S1, S2 present. No murmurs, rubs, or gallops heard. Respiratory: Lungs are clear to auscultation bilaterally. No accessory muscle use. Abdomen: Bowel sounds present. Belly is soft, nontender, nondistended. He has urostomy in place to his abdomen with clear yellow urine. No CVA tenderness. Extremities: No lower extremity edema. Musculoskeletal: No clubbing or cyanosis noted. He moves all extremities. He has no tenderness at the palpation of his knees, neck, back or spine. Psychological: Calm and cooperative. Skin: No rashes or abnormalities seen. He has no splinter hemorrhages. DIAGNOSTIC STUDIES/LAB DATA: Sodium 134, potassium 4.3, chloride 106, CO2 of 20 , BUN 29, creatinine 2.43, glucose 140. White blood cell count 23.3, hemoglobin 9.6, hematocrit of 29, platelet count 154. CRP and ESR on admission 9.8 and 33, respectively. Please see impression and recommendations outlined above. Recommendations have been discussed with OSMANY Galeano. Thank you for asking us to see Mr. Thorne in consultation. The case has been reviewed with my attending, Dr. Perez Love, who agrees with the plan of care. Reviewed by RIANNA SCHULTZ, RONI-C 05/26/19 1214 [id number]/[facility] #: [id number] [place]
[2019-05-21] MEDS: Atorvastatin* 10 MG TAB PO SCH (17:11)
[2019-05-21] MEDS: Clopidogrel TAB* 75 MG PO SCH (17:12)
[2019-05-21] MEDS: BICALUTAMIDE 50 MG PO SCH (17:46)
[2019-05-21] MEDS: Doxazosin TAB* 2 MG PO SCH (20:32)
[2019-05-22] MEDS: Vancomycin(*) 500 MG in NS 0.9% 250 ML* 250 ML IVPB SCH (02:53)
[2019-05-22] MEDS: Acetaminophen TAB* 325 MG PO PRN ×2 (04:28→22:15)
[2019-05-22 06:22] LABS: ABS Eosinophils 0.1 10^3/ul (0-0.6); ABS Lymphocytes 0.5 10^3/ul (1.0-4.8); ABS Monocytes 0.6 10^3/ul (0-0.8); ABS Neutrophils 10.8 10^3/ul (1.5-7.7); Eosinophil % 0.8 %; Hematocrit 27 % (42-52); Hemoglobin 9.1 g/dL (14.0-18.0); Lymphocyte % 3.9 %; Mean Corpuscular HGB Conc 34 g/dL (31-36); Mean Corpuscular Hemoglobin 33 pg (27-31); Mean Corpuscular Volume 96 fL (80-94); Mean Platelet Volume 9.2 fL (7.4-10.4); Platelet Count 137 10^3/uL (150-450); Red Blood Count 2.79 10^6 /uL (4.18-5.48); Red Cell Distribution Width 13 % (10-15)
[2019-05-22 06:28] LABS: BUN/Creatinine Ratio 11.3 (8-20); EGFR Non-African American 26.4 (>60); Magnesium 1.9 mg/dL (1.9-2.7)
[2019-05-22] MEDS: Heparin VIAL(*) 5000 UNITS/ML VIAL (FIVE THOUSAND) SUBCUT SCH ×3 (06:36→22:39)
[2019-05-22] MEDS ORDERED: Influenza VAC *QUAD* 2019-20* 0.5 ML SYRINGE IM ONE (09:00)
[2019-05-22] MEDS: Docusate CAP* 100 MG PO SCH ×2 (09:38→21:38)
[2019-05-22] MEDS: Ascorbic Acid TAB* 500 MG PO SCH (09:48)
[2019-05-22] MEDS: Cholecalciferol TAB* 1000 UNITS PO SCH (09:48)
[2019-05-22] MEDS: Metoprolol Tartrate TAB* 50 mg PO SCH ×2 (09:49→20:22)
[2019-05-22] MEDS: amLODIPine TAB* 5 MG PO SCH (09:49)
[2019-05-22] MEDS: cefTRIAXone(*) 1 GM in NS 0.9% 50 ML* 50 ML IVPB SCH (09:50)
--- NOTE | 2019-05-22 14:33 | PN ---
Subjective Date of Service: 05/22/19 Interval History: Patient is feeling better today. Patient feels he has more energy. Patient denies abdominal pain, diarrhea, CP, SOB, F/C, dizziness, dysuria, or other pain. Patient is anxious to go home. Family History: Unchanged from Admission Social History: Unchanged from Admission Past Medical History: Unchanged from Admission Objective Active Medications: Acetaminophen (Tylenol Tab*) 650 mg PO Q4H PRN PRN Reason: MILD PAIN or TEMP > 100.4 Last Admin: 05/22/19 04:28 Dose: 650 mg Amlodipine Besylate (Norvasc Tab*) 5 mg PO QAM [facility] Last Admin: 05/22/19 09:49 Dose: 5 mg Ascorbic Acid (Vitamin C Tab*) 500 mg PO DAILY [facility] Last Admin: 05/22/19 09:48 Dose: 500 mg Atorvastatin Calcium (Lipitor*) 5 mg PO QPM [facility]; Protocol Last Admin: 05/21/19 17:11 Dose: 5 mg Bicalutamide (Casodex (Nf)) 50 mg PO QPM [facility]; Protocol Last Admin: 05/21/19 17:46 Dose: Not Given Cholecalciferol (Vitamin D Tab*) 1,000 units PO DAILY [facility] Last Admin: 05/22/19 09:48 Dose: 1,000 units Clopidogrel Bisulfate (Plavix Tab*) 75 mg PO QPM [facility] Last Admin: 05/21/19 17:12 Dose: 75 mg Docusate Sodium (Colace Cap*) 100 mg PO BID [facility] Last Admin: 05/22/19 09:38 Dose: Not Given Doxazosin Mesylate (Cardura Tab*) 1 mg PO BEDTIME [facility] Last Admin: 05/21/19 20:32 Dose: 1 mg Heparin Sodium (Porcine) (Heparin Vial(*)) 5,000 units SUBCUT Q8HR [facility] Last Admin: 05/22/19 06:36 Dose: 5,000 units Vancomycin HCl 500 mg/ Sodium (Chloride) 250 mls @ 166.667 mls/hr IVPB Q12H [facility] Last Admin: 05/22/19 02:53 Dose: 166.667 mls/hr Ceftriaxone Sodium 1 gm/ (Sodium Chloride) 50 mls @ 100 mls/hr IVPB Q24H [facility] Last Admin: 05/22/19 09:50 Dose: 100 mls/hr Metoprolol Tartrate (Lopressor Tab*) 50 mg PO BID [facility] Last Admin: 05/22/19 09:49 Dose: 50 mg Ondansetron HCl (Zofran Inj*) 4 mg IV Q4H PRN PRN Reason: NAUSEA/VOMITING Pharmacy Consult (Vancomycin Per Pharmacy*) 1 note FOLLOW UP .VANC PER PHARMACY [facility]; Protocol Pharmacy Profile Note (Vancomycin Trough Check) 1 note FOLLOW UP 1500 ONE Stop: 05/22/19 15:01 Zolpidem Tartrate (Ambien Tab*) 10 mg PO BEDTIME PRN PRN Reason: SLEEP Vital Signs - 8 hr 05/22/19 05/22/19 05/22/19 07:15 08:00 11:15 Temperature 98.2 F 97.5 F Pulse Rate 66 57 Respiratory 19 19 20 Rate Blood Pressure 142/45 122/48 (mmHg) O2 Sat by Pulse 95 97 Oximetry Oxygen Devices in Use Now: None Appearance: Patient is a 78yo male who appears stated age and is sitting in the bed in [facility]. Eyes: No Scleral Icterus, PERRLA Ears/Nose/Mouth/Throat: NL Teeth, Lips, Gums, Clear Oropharnyx, Mucous Membranes Moist Neck: NL Appearance and Movements; NL JVP, Trachea Midline Respiratory: Symmetrical Chest Expansion and Respiratory Effort, Clear to Auscultation Cardiovascular: NL Sounds; No Murmurs; No JVD, RRR, No Edema Abdominal: NL Sounds; No Tenderness; No Distention, No Hepatosplenomegaly, - Lymphatic: No Cervical Adenopathy Extremities: No Edema, No Clubbing, Cyanosis Skin: No Rash or Ulcers, No Nodules or Sclerosis Neurological: Alert and Oriented x 3, NL Sensation, NL Muscle Strength and Tone , - - CN II-XII intact. Result Diagrams: 05/22/19 05:56 05/22/19 05:56 Microbiology and Other Data: Microbiology 05/20/19 14:23 Urine Culture - Preliminary Urine Strep Group B Enterococcus Faecalis 05/20/19 14:44 Aerobic Blood Culture - Preliminary Blood Venous No Growth Day 1 Anaerobic Blood Culture - Preliminary Strep Agalactiae - (Group B) 05/20/19 16:01 Aerobic Blood Culture - Preliminary Blood Venous Anaerobic Blood Culture - Preliminary Assess/Plan/Problems-Billing Assessment: Patient is a 78yo male with a PMH for urostomy due to prostate cancer, needing multiple ureteral stents, here with sepsis, UTI and bacteremia. Patient is on antibiotics. - Patient Problems (1) UTI (urinary tract infection) Current Visit: Yes Status: Acute Comment: - Complicated Urinary Tract with urostomy and stents, replacement 05/20 - Will discuss possible need to change stents with urology when available - Currently growing Enterococcus and GBS. Switch to Ampicillin (2) Sepsis Current Visit: Yes Status: Acute Comment: - With leukocytosis, Tachycardia, Fever - Urinary source with bacteremia. - Improved with fluids and antibiotics. (3) Bacteremia Current Visit: Yes Status: Acute Code(s): R78.81 - BACTEREMIA SNOMED Code( s): 2492259 Comment: - Due to GBS - Transition to Ampicillin - Appreciate ID input - Check Echo (4) Complication of urostomy Current Visit: Yes Status: Acute Code(s): N99.528 - OTHER COMP OF INCONTINENT EXTERNAL STOMA OF URINARY TRACT SNOMED Code(s): 02538963 Comment: - Possibly from stent replacement yesterday, though patient was reported to have been feeling poorly before procedure (5) CKD (chronic kidney disease) Current Visit: Yes Status: Acute Code(s): N18.9 - CHRONIC KIDNEY DISEASE, UNSPECIFIED SNOMED Code(s): 839955350 Comment: - With acute worsening with Vanco/Zosyn - Transition to Ampicillin - Monitor (6) HTN (hypertension) Current Visit: Yes Status: Acute Code(s): I10 - ESSENTIAL (PRIMARY) HYPERTENSION SNOMED Code(s): 80832646 Comment: - Normotensive - Continue Amlodipine (7) HLD (hyperlipidemia) Current Visit: Yes Status: Acute Code(s): E78.5 - HYPERLIPIDEMIA, UNSPECIFIED SNOMED Code(s): 98346864 Comment: - Continue Atorvastatin (8) CAD (coronary artery disease) Current Visit: Yes Status: Acute Code(s): I25.10 - ATHSCL HEART DISEASE OF [place] CORONARY ARTERY W/O ANG PCTRS SNOMED Code(s): 69553179 Comment: - Continue Plavix and lipitor - No signs of ACS (9) DVT prophylaxis Current Visit: Yes Status: Acute Code(s): Z29.9 - ENCOUNTER FOR PROPHYLACTIC MEASURES, UNSPECIFIED SNOMED Code(s): 335346257 Comment: - Heparin SubQ (10) Full code status Current Visit: Yes Status: Acute Code(s): Z78.9 - OTHER SPECIFIED HEALTH STATUS SNOMED Code(s): 989561682 Status and Disposition: Inpatient for GBS bacteremia
[2019-05-22] MEDS ORDERED: Vancomycin Trough Check NOTE FOLLOW UP ONE (15:00)
[2019-05-22] MEDS: Ampicillin ADVAN(*) 2 GM in NS 0.9% 100 ML* 100 ML IVPB SCH ×2 (15:46→22:19)
[2019-05-22] MEDS: BICALUTAMIDE 50 MG PO SCH (17:39)
[2019-05-22] MEDS: Clopidogrel TAB* 75 MG PO SCH (17:57)
[2019-05-22] MEDS: Atorvastatin* 10 MG TAB PO SCH (17:57)
[2019-05-22] MEDS: Doxazosin TAB* 2 MG PO SCH (22:32)
[2019-05-23] MEDS: Ampicillin ADVAN(*) 2 GM in NS 0.9% 100 ML* 100 ML IVPB SCH ×4 (02:43→21:12)
[2019-05-23 06:08] LABS: ABS Eosinophils 0.1 10^3/ul (0-0.6); ABS Lymphocytes 0.7 10^3/ul (1.0-4.8); ABS Monocytes 0.9 10^3/ul (0-0.8); ABS Neutrophils 9.1 10^3/ul (1.5-7.7); Eosinophil % 1.3 %; Hematocrit 28 % (42-52); Hemoglobin 9.5 g/dL (14.0-18.0); Lymphocyte % 6.1 %; Mean Corpuscular HGB Conc 34 g/dL (31-36); Mean Corpuscular Hemoglobin 33 pg (27-31); Mean Corpuscular Volume 95 fL (80-94); Mean Platelet Volume 9.2 fL (7.4-10.4); Platelet Count 137 10^3/uL (150-450); Red Blood Count 2.93 10^6 /uL (4.18-5.48); Red Cell Distribution Width 14 % (10-15); White Blood Count 10.8 10^3/uL (3.5-10.8)
[2019-05-23 06:23] LABS: BUN/Creatinine Ratio 10.2 (8-20); Calcium 8.2 mg/dL (8.6-10.3); EGFR Non-African American 29.7 (>60); Magnesium 1.8 mg/dL (1.9-2.7)
[2019-05-23] MEDS: Heparin VIAL(*) 5000 UNITS/ML VIAL (FIVE THOUSAND) SUBCUT SCH ×3 (07:14→21:12)
[2019-05-23] MEDS ORDERED: Magnesium Sulfate 2 GM IV* 2 GM/50 ML BAG IVPB ONE (09:04)
[2019-05-23] MEDS: Docusate CAP* 100 MG PO SCH ×2 (09:51→21:02)
[2019-05-23] MEDS: Metoprolol Tartrate TAB* 50 mg PO SCH ×2 (09:51→21:12)
[2019-05-23] MEDS: Cholecalciferol TAB* 1000 UNITS PO SCH (09:51)
[2019-05-23] MEDS: amLODIPine TAB* 5 MG PO SCH (09:51)
[2019-05-23] MEDS: Ascorbic Acid TAB* 500 MG PO SCH (09:51)
--- NOTE | 2019-05-23 10:25 | PN ---
Subjective Date of Service: 05/23/19 Interval History: Pt states he feels discouraged at lack of progress. He states he doesn't feel very energetic, although he has resolution of chills, nausea, vomiting. He is eager for discharge, as his partner is ill and "not doing very well." He states ostomy output is good, there is no hematuria. He does c/o occasional headache that is relieved with Tylenol. He has rare cough. He has been having some bouts of diarrhea. He is eating and drinking well and without difficulty. No other complaints today. Family History: Unchanged from Admission Social History: Unchanged from Admission Past Medical History: Unchanged from Admission Objective Active Medications: Acetaminophen (Tylenol Tab*) 650 mg PO Q4H PRN Amlodipine Besylate (Norvasc Tab*) 5 mg PO QAM [facility] Ascorbic Acid (Vitamin C Tab*) 500 mg PO DAILY [facility] Atorvastatin Calcium (Lipitor*) 5 mg PO QPM [facility]; Protocol Bicalutamide (Casodex (Nf)) 50 mg PO QPM [facility]; Protocol Cholecalciferol (Vitamin D Tab*) 1,000 units PO DAILY [facility] Clopidogrel Bisulfate (Plavix Tab*) 75 mg PO QPM [facility] Docusate Sodium (Colace Cap*) 100 mg PO BID [facility] Doxazosin Mesylate (Cardura Tab*) 1 mg PO BEDTIME [facility] Heparin Sodium (Porcine) (Heparin Vial(*)) 5,000 units SUBCUT Q8HR [facility] Ampicillin Sodium 2 gm/ Sodium (Chloride) 100 mls @ 200 mls/hr IVPB Q6H [facility] Metoprolol Tartrate (Lopressor Tab*) 50 mg PO BID [facility] Ondansetron HCl (Zofran Inj*) 4 mg IV Q4H PRN Zolpidem Tartrate (Ambien Tab*) 10 mg PO BEDTIME PRN Vital Signs: Temp Pulse Resp BP Pulse Ox 99 F 74 20 146/46 94 05/23/19 07:08 05/23/19 07:08 05/23/19 07:08 05/23/19 07:08 05/23/19 07:08 Oxygen Devices in Use Now: None Appearance: Pt is a pleasant older white male who is sitting up in bed, HOB elevated. He appears to be in no acute distress. He is cooperative, appropriate. Eyes: No Scleral Icterus, PERRLA Ears/Nose/Mouth/Throat: NL Teeth, Lips, Gums, Clear Oropharnyx, Mucous Membranes Moist Neck: NL Appearance and Movements; NL JVP, Trachea Midline Respiratory: Symmetrical Chest Expansion and Respiratory Effort, Clear to Auscultation Cardiovascular: NL Sounds; No Murmurs; No JVD, RRR, No Edema Abdominal: NL Sounds; No Tenderness; No Distention, - - R urostomy in place with clear yellow urine in ostomy pouch. No CVA tenderness Extremities: No Edema, No Clubbing, Cyanosis Skin: No Nodules or Sclerosis, - - No splinter hemorrhages. Neurological: Alert and Oriented x 3 Result Diagrams: 05/23/19 05:52 05/23/19 05:52 Microbiology and Other Data: Microbiology 05/20/19 14:23 Urine Culture - Preliminary Urine Strep Group B Enterococcus Faecalis 05/20/19 14:44 Aerobic Blood Culture - Preliminary Blood Venous No Growth Day 1 Anaerobic Blood Culture - Preliminary Strep Agalactiae - (Group B) 05/20/19 16:01 Aerobic Blood Culture - Preliminary Blood Venous Anaerobic Blood Culture - Preliminary Assess/Plan/Problems-Billing Assessment: Patient is a 78yo male with a PMH for urostomy due to prostate cancer, needing multiple ureteral stents, here with sepsis, UTI and bacteremia. Patient is on antibiotics. - Patient Problems (1) UTI (urinary tract infection) Comment: - Complicated Urinary Tract with urostomy and stents, replacement 05/20 - Will discuss possible need to change stents with urology when available - Currently growing Enterococcus and GBS, both with sensitivity to Ampicillin - Continue ampicillin - ID following (2) Bacteremia Comment: - GBS in 3/4 bottles; repeat BC NGTD - Continue Ampicillin - Appreciate ID input - Echo shown no clear intra-cardiac mass (3) Sepsis Comment: - With leukocytosis, Tachycardia, Fever - Urinary source with bacteremia. - Improved with fluids and antibiotics. - Resolved (4) Complication of urostomy Comment: - Possibly from stent replacement 05/20, though patient was reported to have been feeling poorly before procedure (5) CKD (chronic kidney disease) Comment: - With acute worsening with Vanco/Zosyn - Transitioned to Ampicillin - Cr improving - Continue to monitor (6) CAD (coronary artery disease) Comment: - Continue Plavix and lipitor - No signs of ACS (7) HTN (hypertension) Comment: - BP 120-140's - Continue Amlodipine (8) HLD (hyperlipidemia) Comment: - Continue Atorvastatin (9) DVT prophylaxis Comment: - Heparin SubQ (10) Full code status Status and Disposition: Inpatient for GBS bacteremia.
--- NOTE | 2019-05-23 12:38 | ECHO ---
*[facility]* [place] [address] Fax #: [phone] Transthoracic Echocardiogram Patient: Deniz Thorne : 1940 Study Date: 05/23/2019 Age: 78 Gender: M HR: 74 bpm Height: 68 in /172.7 cm BSA: 1.96 m^2 Weight: 180.6 lb /82.1 kg BMI: 27.5 kg/m^2 *Director [employer]: * [facility] *Referring Physician: * Daniel Carlson *Reading Physician: * Brandon Stroud MD Indications: Bacteremia. History: Coronary artery disease. Functional status: Renal failure. Risk factors: Former tobacco use. Hypertension. Dyslipidemia. Conclusions Summary: - Left ventricle: The cavity size is normal. There is mild concentric hypertrophy. Systolic function is normal. The estimated ejection fraction is 60-65%. Wall motion is normal; there are no regional wall motion abnormalities. - Right ventricle: The cavity size is mildly dilated. Systolic function is normal. - Left atrium: The atrium is moderately dilated. - Right atrium: The atrium is mildly to moderately dilated. - Functionally benign heart valves. - There is no clear intra-cardiac mass seen on this transthoracic echocardiogram. If clinical concern remains, consider transesophageal echocardigraphy for improved sensitivity of intra-cardiac mass detection. - There is no prior echocardiogram available to compare with at this time. Study data: Transthoracic echocardiogram. Procedure: Transthoracic echocardiography was performed. Image quality was fair. Complete 2D, spectral Doppler, and color flow Doppler. Location: Bedside. Patient status: Inpatient. Patient room number: 446-1. Rhythm: Normal sinus rhythm. Findings Left ventricle: The cavity size is normal. There is mild concentric hypertrophy. Systolic function is normal. The estimated ejection fraction is 60-65%. Wall motion is normal; there are no regional wall motion abnormalities. There is no consistent Doppler evidence of clinically significant diastolic dysfunction. Right ventricle: The cavity size is mildly dilated. Systolic function is normal. Systolic pressure is within the normal range. Left atrium: The atrium is moderately dilated. Right atrium: The atrium is mildly to moderately dilated. Mitral valve: The Mitral valve annulus appears mildly calcified. The leaflets are mildly thickened. There is trace regurgitation. Aortic valve: Poorly visualized. The valve is trileaflet. The leaflets are mildly thickened. Thickening, consistent with sclerosis. There is no evidence of stenosis. There is no significant regurgitation. Tricuspid valve: The leaflets are normal thickness. There is trace to mild regurgitation. Pulmonic valve: The leaflets are normal thickness. There is no evidence of stenosis. There is trace regurgitation. Aorta: Aortic root: The aortic root is appears normal. Ascending aorta: The ascending aorta is appears normal. Aortic arch: The aortic arch is appears normal. Pericardium: A prominent pericardial fat pad is present. There is no significant pericardial effusion. Pulmonary arteries: The main pulmonary artery is normal-sized. Systolic pressure is within the normal range. Systemic veins: Inferior vena cava: The vessel is dilated. There is (>= 50%) respiratory change in the IVC dimension. Measurements Left ventricle Value Ref Aortic valve Value Ref SHAWN, LAX 4.2 cm 4.2 - 5.8 Stephen diam, ED 2.0 cm ----- ESD, LAX 3.1 cm 2.5 - 4.0 Peak v, S 1.7 m/sec ----- FS, LAX 27 % 25 - 43 VTI, S 36.7 cm ----- PW, ED, LAX (H) 1.1 cm 0.6 - 1.0 Mean grad, S 6.0 mm Hg ----- FS 27 % 25 - 43 Peak grad, S 12.0 mm Hg ----- PW, ED (H) 1.1 cm 0.6 - 1.0 LVOT/AV, VTI ratio 0.63 ----- E', lat stephen, TDI 10.1 cm/sec >=10.0 TINY, VTI 2.17 cm^2 --- -- E/e', lat stephen, 10 TINY, Vmax 2.08 cm^2 ----- TDI E', med stephen, TDI (L) 6.6 cm/sec >=7.0 Mitral valve Value Ref E/e', med stephen, 16 Peak E 1.05 m/sec ----- TDI Peak A 0.6 m/sec ----- E', avg, TDI 8.4 cm/sec Decel time 190 ms ----- E/e', avg, TDI 13 <=14 Peak grad, D 4.4 mm Hg --- -- Peak E/A ratio 1.7 ----- LVOT Value Ref Diam, S 2.10 cm Pulmonic valve Value Ref Area 3.5 cm^2 Peak v, S 0.98 m/sec ----- Peak diana, S 1.02 m/sec Peak grad, S 4.0 mm Hg ----- VTI, S 23.0 cm Mean grad, S 2 mm Hg Tricuspid valve Value Ref SV 80 ml TR peak v 2.4 m/sec <=2.8 SV/bsa 41 ml/m^2 Peak RV-RA grad, S 23 mm Hg ----- Ventricular septum Value Ref Aortic root Value Ref IVS, ED (H) 1.1 cm 0.6 - 1.0 Root diam 3.4 cm <4.1 Right ventricle Value Ref Ascending aorta Value Ref SHAWN, LAX 3.2 cm AAo AP diam, S 3.0 cm ----- SHAWN minor ax, A4C (H) 4.8 cm 1.9 - 3.5 mid Aortic arch Value Ref Pressure, S 31 mm Hg Arch diam 2.1 cm ----- Left atrium Value Ref Decending aorta Value Ref AP dim, ES (H) 4.10 cm 3.00 - Deanna peak diana 0.65 m/sec ----- 4.00 ML dim, A4C 5.0 cm Pulmonary artery Value Ref SI dim, A4C 5.7 cm Pressure, S 27.0 mm Hg ----- Vol/bsa, ES, 1-p (H) 38 ml/m^2 12 - 37 A4C Inferior vena cava Value Ref Vol/bsa, ES, A/L (H) 47 ml/m^2 16 - 34 Diam 2.6 cm ----- Right atrium Value Ref SI dim, ES 5.3 cm 3.4 - 5.3 ML dim, ES, A4C (H) 5.6 cm 2.6 - 4.4 SI dim, ES, A4C 5.3 cm 3.4 - 5.3 Estimated RAP 8 mm Hg Legend: (L) and (H) yanely values outside specified reference range. Prepared and electronically signed by Brandon Stroud MD 05/23/2019 12:37
[2019-05-23] MEDS: Lactobacillus Acidophilus* 1 TAB PO SCH (14:18)
[2019-05-23] MEDS: BICALUTAMIDE 50 MG PO SCH (18:02)
[2019-05-23] MEDS: Atorvastatin* 10 MG TAB PO SCH (18:03)
[2019-05-23] MEDS: Clopidogrel TAB* 75 MG PO SCH (18:03)
[2019-05-23] MEDS: Doxazosin TAB* 2 MG PO SCH (21:11)
[2019-05-23] MEDS: Acetaminophen TAB* 325 MG PO PRN (22:25)
[2019-05-24] MEDS: Ampicillin ADVAN(*) 2 GM in NS 0.9% 100 ML* 100 ML IVPB SCH ×2 (03:21→08:43)
[2019-05-24] MEDS: Heparin VIAL(*) 5000 UNITS/ML VIAL (FIVE THOUSAND) SUBCUT SCH (06:04)
[2019-05-24] MEDS: Lactobacillus Acidophilus* 1 TAB PO SCH (08:43)
[2019-05-24] MEDS: Cholecalciferol TAB* 1000 UNITS PO SCH (08:43)
[2019-05-24] MEDS: Metoprolol Tartrate TAB* 50 mg PO SCH (08:43)
[2019-05-24] MEDS: amLODIPine TAB* 5 MG PO SCH (08:43)
[2019-05-24] MEDS: Ascorbic Acid TAB* 500 MG PO SCH (08:43)
[2019-05-24] MEDS: Docusate CAP* 100 MG PO SCH (08:44)
[2019-05-24 13:16] VITALS: BP 138/51
[2019-05-24 14:01] LABS: Total Iron Binding Capacity 220 mcg/dL (250-450); Transferrin 157 mg/dL (203-362)
[2019-05-24 14:09] LABS: % Iron Saturation 9 % (15-55); Iron < 20 ug/dL (50-212)
[2019-05-24 14:22] LABS: Ferritin 750.2 ng/mL (24-336)
[2019-05-24 14:26] LABS: Folate 9.38 ng/mL (>3.99)
--- NOTE | 2019-05-25 05:25 | DS ---
CC: Dr. Solomon De La Cruz; Dr. Jewel Wheeler; Dr. Perez Love * DISCHARGE SUMMARY: DATE OF ADMISSION: 05/21/19 DATE OF DISCHARGE: 05/24/19 PRIMARY CARE PROVIDER: Solomon De La Cruz MD UROLOGIST: Jewel Wheeler MD INFECTIOUS DISEASE SPECIALIST: Perez Love MD ATTENDING PHYSICIAN: Walter Barrios MD * (dictated by OSMANY Lopez). PRIMARY DIAGNOSES: 1. Urinary tract infection, enterococcus and group B Strep. 2. Group B Strep bacteremia. 3. Sepsis. SECONDARY DIAGNOSES: 1. Hypertension. 2. Hyperlipidemia. 3. Coronary artery disease. 4. Chronic kidney disease, stage 3. 5. 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 6. Anemia. 7. Recurrent urinary tract infections. 8. Gout. 9. Peripheral neuropathy. 10. Vitamin B12 deficiency. 11. Bilateral ureteral stents, last replaced 05/20/19. STUDIES WHILE IN THE HOSPITAL: Transthoracic echocardiogram: LV cavity size normal, mild concentric hypertrophy, systolic function normal, EF 60% to 65%, wall motion normal, no regional wall motion abnormalities, RV size mildly dilated, systolic function normal, LA moderately dilated, RA mildly to moderately dilated, functionally benign heart valves. There is no clear intracardiac mass seen on transthoracic echocardiogram. If clinical concern remains, consider transesophageal echocardiogram. CONSULTATION WHILE IN THE HOSPITAL: Infectious Disease, Plan/Recommendations: Agree with continuing vancomycin, ceftriaxone at this time. Should continue IV antibiotics through weekend. Once culture result is back, can discontinue vancomycin, if culture is in fact growing strep and not enterococcus. DISCHARGE MEDICATIONS: Home medications: 1. Amlodipine 5 mg p.o. q.a.m. 2. Ascorbic acid 500 mg p.o. daily. 3. Casodex 50 mg p.o. daily. 4. Cholecalciferol 1000 units p.o. daily. 5. Clopidogrel 75 mg p.o. daily. 6. Cyanocobalamin injection q. 28 days. 7. Docusate cap 100 mg p.o. b.i.d. 8. Doxazosin 1 mg p.o. at bedtime. 9. Metoprolol tartrate 50 mg p.o. b.i.d. 10. Pravastatin 20 mg p.o. q.p.m. 11. Zolpidem 10 mg p.o. at bedtime p.r.n. insomnia. New home medications: 1. Amoxicillin/clavulanate 500 mg p.o. t.i.d. 2. Lactobacillus acidophilus 1 tab p.o. daily. HISTORY OF PRESENT ILLNESS/HOSPITAL COURSE: Mr. Tohrne is a 78-year-old male with past medical history of hypertension, hyperlipidemia, CKD stage 3, history of prostate cancer, status post failed cryotherapy, eventually resulting in ileal conduit, who presented to the ER on 05/21/19 with complaints of chills and vomiting on the day of his stent change which was 05/20/19. For full and complete details, please see the history and physical dictated by Onesimo Arce MD, but in short, the patient presents with these symptoms and was found to meet sepsis criteria secondary to urinary tract infection. He was started on Zosyn and vancomycin. He was transitioned to ceftriaxone and vancomycin. Urine was sent for culture and eventually grew group B Strep as well as Enterococcus. Organisms were susceptible to ampicillin and the patient was transitioned to this medication. Infectious Disease did follow the patient throughout his stay. Blood cultures were obtained in the ER and 3 out of 4 bottles grew group B Strep. Again, this organism was susceptible to ampicillin which the patient was on x3 days prior to discharge. The patient slowly improved throughout his stay and was reportedly feeling better at the time of discharge. The patient was noted to have low H and H throughout his stay. Hemoglobin end of February was 12.3 and during the patient's visit, values were 9.1 to 9.6. The patient denied hematochezia, melena, hematemesis. Recommendations were made to obtain stool for occult blood as well as iron studies. The patient is very eager for discharge and declines the testing. He is agreeable to iron studies, B12, folate, and is requesting to follow up with his primary care provider regarding the results as he does not want to wait for the results of the tests. He again declines stool for occult blood studies at this time. At the time of discharge, the patient states he is feeling well. Infectious Disease was consulted regarding further management of the patient's antibiotics and recommended Augmentin 500 b.i.d. x10 days and follow up with Infectious Disease. Office will call with appointment. The patient, again is eager for discharge. Iron studies have been obtained but have not resulted at the time of this discharge. Results should be followed by his primary care provider. The patient denies headache, dizziness, lightheadedness, vision changes, chest pain , shortness of breath, cough, fever, chills, abdominal pain, nausea, vomiting, diarrhea, constipation. His urostomy output has been clear and within normal limits without blood. The patient denies flank pain. He denies myalgias, arthralgias, muscle weakness. Mr. Thorne will be discharged home. PHYSICAL EXAMINATION: Vital Signs: Temperature 98.7 oral, heart rate 62, respiratory rate 16, oxygen saturation 97% on room air, blood pressure 138/51. General: Mr. Thorne is well-developed, well-nourished, older white male, who is sitting up in bed. He appears comfortable, in no acute distress. He is cooperative, pleasant, appropriate. HEENT: PERRL, EOMI, nonicteric sclerae. Hearing is grossly intact. Oral mucous membranes are moist. There are no lesions. Pharynx is clear. Cardiovascular: Regular rate and rhythm with S1, S2 present without murmurs, rubs, clicks, or gallops. There is no JVD. There is no peripheral edema. Pulmonary: Symmetrical chest expansion without use of accessory muscles. Lungs: Clear to auscultation bilaterally without rhonchi, wheezes, or rubs. Abdomen: Right-sided urostomy in place with yellow clear urine in ostomy bag. Bowel sounds in all quadrants. Abdomen nontender to palpation. Negative for CVA tenderness. Musculoskeletal: Full range of motion without pain or deformities. Neuro: The patient is awake. He is alert and oriented x3 with cranial nerves grossly intact. 5/5 muscle strength bilaterally in upper and lower extremities. DISCHARGE PLAN: Mr. Thorne will be discharged to home. CONDITION: Good. DIET: Heart healthy. ACTIVITY: As tolerated. MEDICATIONS: 1. Continue Augmentin 500 mg p.o. t.i.d. x10 days. 2. Continue probiotic as desired. Recommended to continue for duration of antibiotic use. EDUCATION: 1. Follow up with primary care provider in 4 to 7 days. Discuss recent hospitalization, results of anemia studies. 2. Follow up with Dr. Love. Office will call with appointment date and time. 3. Return to the ER or the nearest hospital if he experience any worsening of symptoms, chest pain or discomfort, shortness of breath, dizziness, lightheadedness, loss of consciousness, high fevers, chills, night sweats, or any other worrisome signs or symptoms. Return for melena, hematochezia, or hematemesis. This is a summarized report of a complex medical history and hospital stay. For further details, please see the entire medical record. TIME SPENT: Approximately 35 minutes was spent on this discharge, greater than half that time was spent [id number] with the patient discussing discharge plans and instructions. OSMANY GUTIERRES [id number]/[facility] #: [id number]
== END 2019-05-24 13:30 | disposition home or self-care (01) | DRG 872 ==
LOC: ED 13:48 → MEDTELE 05-21 01:44
PROVIDERS: ADMIT Internal Medicine; ATTEND Internal Medicine
DX: A40.1 Sepsis due to streptococcus, group B (principal); N39.0 Urinary tract infection, site not specified; N13.39 Other hydronephrosis; B95.1 Streptococcus, group B, as the cause of diseases classified elsewhere; B95.2 Enterococcus as the cause of diseases classified elsewhere; N99.89 Other postprocedural complications and disorders of genitourinary system; I12.9 Hypertensive chronic kidney disease with stage 1 through stage 4 chronic kidney disease, or unspecified chronic kidney disease; N18.3 Chronic kidney disease, stage 3 (moderate); E78.5 Hyperlipidemia, unspecified; I25.10 Atherosclerotic heart disease of native coronary artery without angina pectoris; D64.9 Anemia, unspecified; M10.9 Gout, unspecified; G62.9 Polyneuropathy, unspecified; E53.8 Deficiency of other specified B group vitamins; Z85.46 Personal history of malignant neoplasm of prostate; Z93.59 Other cystostomy status; Z92.3 Personal history of irradiation; Z79.899 Other long term (current) drug therapy; Z88.8 Allergy status to other drugs, medicaments and biological substances; Z87.891 Personal history of nicotine dependence
CPT/HCPCS: 36415; 50435; 71045; 80048; 80053; 81003; 81015; 82150; 82607; 82728; 82746; 83540; 83550; 83605; 83690; 83735; 83880; 84484; 85025; 85049; 85610; 85652; 85730; 86140; 87040; 87077; 87086; 87186; 87205; 93005; 93306; 96365; 96375; 99156; 99157; 99285; A9270-GY; C1729; C1769; J0696; J0744; J1644; J2250; J2310; J2405; J2543; J3010; J3370; J3475; Q9967

== ENCOUNTER 2021-02-23 19:54 | Inpatient (IN) ==
[2021-02-23 23:36] LABS: ABS Basophils 0.1 10^3/ul (0-0.2); ABS Eosinophils 0.2 10^3/ul (0-0.6); ABS Lymphocytes 1.1 10^3/ul (1.0-4.8); ABS Monocytes 1.1 10^3/ul (0-0.8); ABS Neutrophils 11.8 10^3/ul (1.5-7.7); Eosinophil % 1.2 %; Hematocrit 33 % (42-52); Hemoglobin 10.8 g/dL (14.0-18.0); Mean Corpuscular HGB Conc 33 g/dL (31-36); Mean Corpuscular Hemoglobin 32 pg (27-31); Mean Corpuscular Volume 96 fL (80-94); Mean Platelet Volume 8.9 fL (7.4-10.4); Platelet Count 266 10^3/uL (150-450); Red Blood Count 3.37 10^6 /uL (4.18-5.48); Red Cell Distribution Width 14 % (10-15); White Blood Count 14.3 10^3/uL (3.5-10.8)
[2021-02-23 23:53] LABS: C Reactive Protein 164.58 mg/L (<8.01); Calcium 9.1 mg/dL (8.6-10.3); EGFR African American 28.6 (>60); EGFR Non-African American 23.7 (>60); Globulin 3.9 g/dL (2-4); Potassium 4.1 mmol/L (3.5-5.0); Total Bilirubin 0.5 mg/dL (0.2-1.0); Total Protein 7.9 g/dL (6.4-8.9)
[2021-02-24] MEDS ORDERED: NS 0.9% 1000 ml BAG 1,000 ML IV ONE (02:36)
[2021-02-24] MEDS ORDERED: cefTRIAXone 1 gm/50 mL NS BAG 1 GM/50 ML BAG IV ONE (04:04)
[2021-02-24 08:15] LABS: Urine Appearance Cloudy; Urine Bilirubin Negative (Negative); Urine Blood 2+ (Negative); Urine Color Yellow; Urine Glucose Negative (Negative); Urine Ketones Negative (Negative); Urine Nitrite Positive (Negative); Urine Protein 2+(100 mg/dL) (Negative); Urine Specific Gravity 1.005 (1.002-1.030); Urine Urobilinogen Negative (Negative)
[2021-02-24 08:19] LABS: Urine Bacteria 1+ (Absent); Urine Red Blood Cell 1+(3-5/hpf) (Absent); Urine White Blood Cell 2+(11-20/hpf) (Absent)
[2021-02-24] MEDS ORDERED: Cefepime 2 GM in Dextrose 2 GM/50 ML BAG IV SCH (11:00)
[2021-02-24] MEDS ORDERED: Heparin 5000 UNITS/ML 1 mL VIAL SUBCUT SCH (14:00)
[2021-02-24] MEDS: CMCS: Bicalutamide 50 mg TAB (NF) PO SCH (16:15)
[2021-02-24] MEDS: Cefepime 1 GM in Dextrose 1 GM/50 ML BAG IV SCH (16:16)
[2021-02-24] MEDS: Heparin 5000 UNITS/ML 1 mL VIAL SUBCUT SCH ×2 (16:17→21:49)
[2021-02-24] MEDS: Morphine 2 MG/ML SYRINGE IV PRN (23:47)
[2021-02-25] MEDS ORDERED: Magnesium Hydroxide LIQ 30 ML UDC PO PRN (00:05)
[2021-02-25] MEDS ORDERED: Polyethylene Glycol 3350 17 GM PACKET PO PRN (00:05)
[2021-02-25] MEDS: Cefepime 1 GM in Dextrose 1 GM/50 ML BAG IV SCH ×2 (03:18→16:15)
[2021-02-25] MEDS: Heparin 5000 UNITS/ML 1 mL VIAL SUBCUT SCH ×3 (05:25→20:04)
[2021-02-25 06:24] LABS: EGFR African American 32.5 (>60); EGFR Non-African American 26.8 (>60); Potassium 4.3 mmol/L (3.5-5.0)
[2021-02-25 06:27] LABS: ABS Basophils 0.1 10^3/ul (0-0.2); ABS Eosinophils 0.5 10^3/ul (0-0.6); ABS Lymphocytes 1.5 10^3/ul (1.0-4.8); ABS Neutrophils 9.7 10^3/ul (1.5-7.7); Eosinophil % 3.8 %; Hematocrit 32 % (42-52); Hemoglobin 10.6 g/dL (14.0-18.0); Lymphocyte % 11.6 %; Mean Corpuscular HGB Conc 33 g/dL (31-36); Mean Corpuscular Hemoglobin 32 pg (27-31); Mean Corpuscular Volume 97 fL (80-94); Mean Platelet Volume 9.7 fL (7.4-10.4); Nucleated Red Blood Cells % 0.2; Platelet Count 256 10^3/uL (150-450); Red Blood Count 3.29 10^6 /uL (4.18-5.48); Red Cell Distribution Width 14 % (10-15); White Blood Count 12.8 10^3/uL (3.5-10.8)
[2021-02-25] MEDS: Magnesium Hydroxide LIQ 30 ML UDC PO SCH ×2 (07:54→20:04)
[2021-02-25] MEDS: CMCS: Bicalutamide 50 mg TAB (NF) PO SCH (12:04)
[2021-02-25] MEDS: Morphine 2 MG/ML SYRINGE IV PRN (16:13)
[2021-02-25] MEDS: Senna TAB 8.6 mg TAB PO PRN (20:03)
[2021-02-26] MEDS: Cefepime 1 GM in Dextrose 1 GM/50 ML BAG IV SCH (03:04)
[2021-02-26] MEDS: Heparin 5000 UNITS/ML 1 mL VIAL SUBCUT SCH ×3 (05:42→20:47)
[2021-02-26] MEDS: Magnesium Hydroxide LIQ 30 ML UDC PO SCH ×2 (08:27→20:38)
[2021-02-26 10:06] LABS: INR 1.16 (0.86-1.15)
[2021-02-26] MEDS: CMCS: Bicalutamide 50 mg TAB (NF) PO SCH (11:40)
[2021-02-26] MEDS: DOXYcycline 100 MG in NS 0.9% 250 ml 250 ML IVPB SCH (13:18)
[2021-02-26] MEDS ORDERED: fentaNYL 100 mcg/2 ml 50 MCG/ML VIAL ONE (15:07)
[2021-02-26] MEDS: Senna TAB 8.6 mg TAB PO PRN (20:37)
[2021-02-27] MEDS: DOXYcycline 100 MG in NS 0.9% 250 ml 250 ML IVPB SCH ×2 (01:35→12:37)
[2021-02-27] MEDS: Heparin 5000 UNITS/ML 1 mL VIAL SUBCUT SCH ×3 (04:31→21:48)
[2021-02-27] MEDS: Magnesium Hydroxide LIQ 30 ML UDC PO SCH ×2 (07:24→21:48)
[2021-02-27 10:56] LABS: ABS Basophils 0.1 10^3/ul (0-0.2); ABS Eosinophils 0.3 10^3/ul (0-0.6); ABS Lymphocytes 0.7 10^3/ul (1.0-4.8); ABS Monocytes 0.6 10^3/ul (0-0.8); ABS Neutrophils 5.9 10^3/ul (1.5-7.7); Eosinophil % 3.9 %; Hematocrit 29 % (42-52); Hemoglobin 9.9 g/dL (14.0-18.0); Lymphocyte % 9.7 %; Mean Corpuscular HGB Conc 34 g/dL (31-36); Mean Corpuscular Hemoglobin 33 pg (27-31); Mean Corpuscular Volume 95 fL (80-94); Mean Platelet Volume 7.9 fL (7.4-10.4); Platelet Count 253 10^3/uL (150-450); Red Blood Count 3.04 10^6 /uL (4.18-5.48); Red Cell Distribution Width 14 % (10-15); White Blood Count 7.5 10^3/uL (3.5-10.8)
[2021-02-27 11:44] LABS: Calcium 9.1 mg/dL (8.6-10.3); EGFR African American 33.6 (>60); EGFR Non-African American 27.8 (>60); Potassium 4.4 mmol/L (3.5-5.0)
[2021-02-27] MEDS: CMCS: Bicalutamide 50 mg TAB (NF) PO SCH (12:37)
[2021-02-27 12:44] LABS: C Reactive Protein 54.98 mg/L (<8.01)
[2021-02-28] MEDS: DOXYcycline 100 MG in NS 0.9% 250 ml 250 ML IVPB SCH ×2 (01:16→13:45)
[2021-02-28] MEDS: Heparin 5000 UNITS/ML 1 mL VIAL SUBCUT SCH ×3 (05:18→21:12)
[2021-02-28] MEDS: Magnesium Hydroxide LIQ 30 ML UDC PO SCH ×2 (08:09→21:12)
[2021-02-28 08:53] LABS: EGFR African American 32.5 (>60); EGFR Non-African American 26.8 (>60); Potassium 4.6 mmol/L (3.5-5.0)
[2021-02-28] MEDS: CMCS: Bicalutamide 50 mg TAB (NF) PO SCH (13:45)
[2021-03-01] MEDS: DOXYcycline 100 MG in NS 0.9% 250 ml 250 ML IVPB SCH (00:58)
[2021-03-01] MEDS: Heparin 5000 UNITS/ML 1 mL VIAL SUBCUT SCH ×2 (05:36→15:13)
[2021-03-01] MEDS: Magnesium Hydroxide LIQ 30 ML UDC PO SCH (07:57)
[2021-03-01 11:55] VITALS: BP 132/45
[2021-03-01] MEDS: CMCS: Bicalutamide 50 mg TAB (NF) PO SCH (12:13)
== END 2021-03-01 16:10 | disposition home or self-care (01) | DRG 699 ==
LOC: ED 19:54 → SSU 02-24 13:20
PROVIDERS: ADMIT Internal Medicine; ATTEND Hospitalist